=== PATIENT | female | born 1950 | race Caucasian/White ===

== ENCOUNTER 2021-01-24 08:36 | Emergency (ER) | payer OTHER, SELFPAY ==
--- NOTE | ~2021-01-24 | CT_ITS ---
EXAMINATION: CT HEAD WITHOUT CONTRAST CT CERVICAL SPINE WITHOUT CONTRAST CT MAXILLOFACIAL WITHOUT CONTRAST CLINICAL INFORMATION: Headache status post fall. Right orbital pain. COMPARISON: None. TECHNIQUE: Multidetector volumetric imaging of the head was performed without the administration of intravenous contrast. Images were also obtained with through the cervical spine as well as the facial bones from the frontal sinuses through the mandible. Multiplanar reconstructed images in coronal and sagittal orientations were submitted. This CT examination was performed using dose optimization techniques as appropriate, variously including the following: *Automated exposure control *Adjustment of mA and/or kV according to patient size (this includes techniques or standardized protocols for targeted exams where dose is matched to indication/reason for exam; i.e. extremities or head) *Use of iterative reconstruction technique DOSE: 1097 mGy-cm FINDINGS: HEAD: There is no evidence of acute intracranial hemorrhage or territorial infarction. No abnormal mass-effect or midline shift. No extra-axial fluid collections. Witt to white matter differentiation is well preserved. The ventricles are normal in size and configuration. There is no abnormal attenuation within the brain parenchyma. There is soft tissue swelling in the right periorbital region and right supraorbital frontal region. No underlying fractures are identified. Calvarium is intact. The mastoid air cells are clear. MAXILLOFACIAL: The mandible, maxilla, pterygoid plates, nasal bones, zygomatic arches, paranasal sinus patton, and bony orbits are intact. No acute osseous abnormality within the maxillofacial region. There is right periorbital soft tissue swelling, primarily along the supraorbital portion of the frontal bone. No post septal abnormalities. Intraconal and extraconal fat are normal. Destructive muscles and globes are unremarkable. Mucosal thickening is evident within the right maxillary sinus inferiorly. This may be odontogenic given the significant periodontal lucency surrounding the right second and third maxillary molars. Less pronounced periodontal disease is evident at the left maxillary molars. Apical periodontitis is also seen around the left second mandibular bicuspid. Artifact from the dental amalgam somewhat limits assessment of the teeth in these regions. Master arthritis is evident at the temporomandibular joints bilaterally. Mastoid air cells remain well-aerated. Oropharynx and nasopharynx are unremarkable. CERVICAL SPINE: Vertebral body heights are normal. No fractures of the vertebral bodies or posterior elements. Grade 1 anterolisthesis of C3 on C4 measures 3 mm, likely related to facet arthropathy at this level. Additional mild anterolisthesis of C2 on C3 measures 2 mm and is also likely related to facet arthropathy. There is reversal of the normal cervical lordosis, favored to be degenerative in nature. Vertebral alignment is otherwise normal. No acute subluxation. The craniocervical and atlantoaxial articulations are normal. Intervertebral discs are narrowed at multiple levels with associated endplate and uncovertebral osteophytes, most notably from C3-C4 through C7-T1. Severe facet arthropathy is seen at C2-C3 bilaterally and on the right at C3-C4. No significant central canal stenoses. There is multilevel neural foraminal encroachment, most notably at C3-C4 on the right due to uncovertebral and facet osteophytes. No significant paravertebral soft tissue swelling. Cervical soft tissues are unremarkable. Imaged portions of the lung apices are clear. CT/CT cervical spine wo con IMPRESSION: 1. No acute intracranial pathology. 2. Right periorbital soft tissue swelling without underlying fractures or post septal abnormalities 3. No acute fracture or acute malalignment in the cervical spine. Multilevel degenerative spondylosis. 4. 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 Mucosal thickening in the right maxillary sinus is most likely odontogenic. Focal apical periodontitis at the left second mandibular bicuspid.
[2021-01-24 09:03] VITALS: BP 145/82; PULSE 86; RESP 16; TEMP 36.9; O2SAT 100; BMI 18.3
--- NOTE | 2021-01-24 09:22 | ED.FALL ---
HPI - Fall General Chief Complaint: Fall Stated Complaint: head injury - fall Time Seen by Provider: 01/24/21 09:14 Source: patient Mode of arrival: ambulatory Limitations: no limitations History of Present Illness HPI Narrative: 70 y/o female presenting to the ER with right sided head pain and bruised eye after she sustained a mechanical fall in her kitchen last night. She reports drinking a few glasses of wine and having fun in her kitchen when she slipped and fell onto her face. She hit the right side of her forehead and had immediate pain. No loss of consciousness. Not on blood thinners or aspirin. She had no other injuries and was able to get up on her own. This morning she woke up with swelling of her forehead and bruising all around her right eye. She reports history of a fall several years ago resulting in terrible vertigo that did not allow her to work for several months. MD complaint: fall Onset (ago): day(s) (1) Fall from: standing Fall witnessed: yes, by family Place fall occurred: home Loss of consciousness: none Prolonged down time: no Symptoms prior to fall: none Context: tripped/slipped Location of injury: face Severity: moderate Quality: aching Associated symptoms (after fall): headache Related Data Allergies Allergy/AdvReac Type Severity Reaction Status Date / Time amoxicillin [From AUGMENTIN] Allergy Severe HIVES, Verified 01/24/21 09:02 ITCHING clavulanic acid Allergy Severe HIVES, Verified 01/24/21 09:02 [From AUGMENTIN] ITCHING erythromycin base Allergy Intermediate HEART Verified 01/24/21 09:02 [Erythromycin Base] PALPATATIONS diphenhydramine Allergy Unknown HIVES Verified 01/24/21 09:02 [From BENADRYL] garlic Allergy Unknown UNKNOWN Verified 01/24/21 09:02 onion [Onion] Allergy Unknown UNKNOWN Verified 01/24/21 09:02 Review of Systems Review of Systems: Constitutional: No Fever, No Chills ENT/Mouth: No sore throat, No Rhinorrhea, No Swallowing Difficulty Eyes: + Eye Pain, + Swelling, No Redness Cardiovascular: No Chest Pain, No SOB Gastrointestinal: No Nausea, No Vomiting, No Diarrhea, No abdominal Pain Genitourinary: No Hematuria Musculoskeletal: No joint pain, No Myalgias Skin: No Skin Lesions, No rash Neuro: No Weakness, No Numbness, No Dizziness, + Headache Psych: + Anxiety/Panic, No Depression Heme/Lymph:+ Bruising, No Lymphadenopathy PMFSH Social History Social History Advance Directives: No Physical Exam Vital Signs: Vital Signs: Last Vital Signs Temp 98.4 F 01/24/21 09:03 Pulse 86 01/24/21 09:03 Resp 16 01/24/21 09:03 BP 145/82 H 01/24/21 09:03 Pulse Ox 100 01/24/21 09:03 Body Mass Index 18.3 Appearance: Alert. Oriented X3. No acute distress. Head/face: moderate swelling of the right forehead with small amount of ecchymosis, right periorbital ecchymosis without significant swelling. tenderness of the right orbit and right frontal area. no palpable skull fracture Eyes: Pupils equal, round and reactive to light. EOMI, no nystagmus ENT: Pharynx normal. no dental trauma Neck: Normal inspection. Neck supple. no cervical spinal tenderness CVS: Normal heart rate and rhythm. Pulses normal. Respiratory: No respiratory distress. Speaks in complete sentences Skin: Skin warm and dry. Normal skin color. Normal skin turgor. No rashes. Extremities: No lower extremity edema. Atraumatic x4 Neuro: Oriented X 3. No motor deficit. No sensory deficit. Course Course Course Narrative: 70 y/o healthy female presenting with facial pain and bruising after a slip and fall last night, witnessed by family without LOC. Exam is consistent with a hematoma and periorbital ecchymosis. She is concerned about facial fractures. Will get CT scan for further evaluation. Reevaluation(s) Reevaluation #1: CT scans show no acute traumatic injuries. Results d/w patient and at the bedside. Stable for d/c home with supportive care and outpatient follow up. Discharge Plan Discharge Clinical Impression: Traumatic hematoma of forehead Qualifiers: Encounter type: initial encounter Qualified Code(s): S00.83XA - Contusion of other part of head, initial encounter Patient Disposition: Home, Self-Care Instructions: Facial Contusion (ED) Additional Instructions: Your CT scans did not show any fractures - only some soft tissue swelling around your right eye Recommend icing the area several times per day. Take Motrin and/or Tylenol as needed for discomfort. Recommend rest, both mental and physical rest CT scan also showed incidental finding of periodontal disease of the right sided molars - follow up with your dentist as needed Follow up with your Primary Care Doctor as needed If you develop new or worsening symptoms call 911 or come back to the ER for further evaluation. Stand Alone Forms: Work/School Release
[2021-01-24] MEDS: Acetaminophen 325 MG TABLET 975 MG PO (09:57)
== END 2021-01-24 11:03 | disposition home or self-care (01) ==
PROVIDERS: Emergency Provider Emergency Medicine; PCP Family Medicine
DX: S00.83XA Contusion of other part of head, initial encounter (principal); S00.11XA Contusion of right eyelid and periocular area, initial encounter; M54.2 Cervicalgia; G44.309 Post-traumatic headache, unspecified, not intractable; W01.0XXA Fall on same level from slipping, tripping and stumbling without subsequent striking against object, initial encounter; Y93.9 Activity, unspecified; Y92.9 Unspecified place or not applicable; Y99.9 Unspecified external cause status
CPT/HCPCS: 70450; 70486; 72125; 99283

== ENCOUNTER 2021-05-04 00:08 | Emergency (ER) | payer OTHER, SELFPAY ==
--- NOTE | 2021-05-04 00:25 | ED.ALLEREA ---
HPI - Allergic Reaction General Chief complaint: Allergic Reaction Stated complaint: HIVES S/P AMOXICILLIN Time Seen by Provider: 05/04/21 00:57 Source: patient and EMS Mode of arrival: EMS Limitations: no limitations History of Present Illness HPI narrative: 70-year-old female presents with rash and itching after taking amoxicillin. MD complaint: allergic reaction and hives Onset (ago): hour(s) (Within the hour of arrival) Exposure: medication Known history of allergy to: Amoxicillin Symptoms: itching Severity: mild Treatment prior to arrival: none Previous Allergic Reaction History: prior ED visit(s) Related Data Previous Rx's Medication Instructions Recorded prednisone 20 mg tablet 40 mg PO DAILY 4 Days #8 tab 05/04/21 Allergies Allergy/AdvReac Type Severity Reaction Status Date / Time amoxicillin [From AUGMENTIN] Allergy Severe HIVES, Verified 01/24/21 09:02 ITCHING clavulanic acid Allergy Severe HIVES, Verified 01/24/21 09:02 [From AUGMENTIN] ITCHING erythromycin base Allergy Intermediate HEART Verified 01/24/21 09:02 [Erythromycin Base] PALPATATIONS diphenhydramine Allergy Unknown HIVES Verified 01/24/21 09:02 [From BENADRYL] garlic Allergy Unknown UNKNOWN Verified 01/24/21 09:02 onion [Onion] Allergy Unknown UNKNOWN Verified 01/24/21 09:02 Review of Systems Review of Systems: Constitutional: No Fever, No Chills ENT/Mouth: No Ear Pain, No Hoarseness, No sore throat Eyes: No Eye Pain, No Swelling, No Redness, No Foreign Body Cardiovascular: No Chest Pain, No SOB Respiratory: No Cough, No Dyspnea Gastrointestinal: No Nausea, No Vomiting, No Diarrhea, No abdominal Pain Genitourinary: No Dysuria, No Hematuria Musculoskeletal: No joint pain, No Myalgias, No Joint Swelling Skin: Positive itching, No Skin lacerations, positive pink flushing rash Neuro: No Weakness, No Numbness, No Paresthesias, No Loss of Consciousness, No Dizziness, No Headache Psych: No Anxiety/Panic, No Depression Heme/Lymph: no easy bruising, no Lymphadenopathy Endocrine: No Polyuria, No Polydipsia Yes all other systems are reviewed and are negative PMFSH Past Medical History Attestation statement: The following information was validated with the patient. Source: old records reviewed Social History Social History Advance Directives: Yes Advance Directives Information Provided: No Advance Directives on File: No Physical Exam Vital Signs: Vital Signs: Last Vital Signs Temp 98.1 F 05/04/21 00:39 Pulse 78 05/04/21 00:39 Resp 18 05/04/21 00:39 BP 131/74 05/04/21 00:39 Pulse Ox 99 05/04/21 00:39 BMI result Body Mass Index 18.3 Appearance: Alert. Oriented X3. No acute distress. Appears anxious. Head: Normal external exam. Normocephalic. Atraumatic. No Mason signs noted. No raccoon eyes noted Eyes: PERRLA. EOMI. Conjunctiva and sclera normal. Eyelids normal. ENT: TM's Normal. Pharynx normal. Uvula midline. Moist mucous membranes. No trismus noted. No drooling noted. No muffled voice noted. Neck: Normal inspection. Neck supple. No adenopathy. CVS: Normal heart rate and rhythm. Heart sound normal. No murmurs noted. Pulses equal to all extremities. Respiratory: No respiratory distress. Painless inspiration. Breath sounds normal. No wheezes/rales/rhonchi noted. Chest nontender. No tracheal stridor noted. No accessory muscle usage noted or decreased air movement noted. Abdomen: Soft and nontender. Bowel sounds normal in all 4 quadrants. No distention noted. No organomegaly noted. No visible injury noted. Back: No CVA tenderness. Full range of motion noted. Skin: Skin warm and dry. Normal skin color. Normal skin turgor. No rashes/lesions/lacerations noted. Extremities: No lower extremity edema. Extremities exhibit normal range of motion. Extremities nontender. Neuro: cranial nerves 2-12 intact, no focal neural deficits, strength 5/5 to all extremities, No motor deficit. No sensory deficit. Course Course Course Narrative: 70-year-old female presents via EMS for suspected allergic reaction to amoxicillin given to her by her dentist for suspected dental infection. Stated that she felt full body itching and had a pink flushing rash throughout her body. She is speaking in clear sentences, no respiratory distress, able to ambulate from stretcher to ED bed without difficulty. Vital signs are stable and within normal limits. At the time my examination, I do not appreciate any raised rashes, tracheal stridor, lung sounds are clear to auscultation all lobes. Even unlabored respirations, moves all extremities against resistance. Abdominal exam is negative, no tenderness to palpation. No chest wall tenderness to palpation. Will treat with prednisone at this time. Is quite hesitant about taking additional medications. Will monitor for approximately 30 minutes status post prednisone administration. 1:16 a.m. lung sounds clear to auscultation all lobes, no tracheal stridor, even unlabored respirations. Vital signs were stable and within normal limits. Able to speak in complete sentences. No indication of medication adverse reaction from prednisone. Skin normal, no indication of hives or flushing rash. Plan of care to discharge home with prescription for prednisone for the next 4 days. Patient verbalized understanding of and agrees to plan of care discharge home. MDM - Allergic Reaction Differential Diagnosis Differential diagnosis: Likely allergic reaction and adverse reaction to drug Medical Records Attestation: I reviewed the patient's medical records. Discharge Plan Discharge Clinical Impression: Allergic reaction Qualifiers: Encounter type: initial encounter Qualified Code(s): T78.40XA - Allergy, unspecified, initial encounter Patient Disposition: Home, Self-Care Instructions: General Allergic Reaction (ED), Allergy Testing (ED) Additional Instructions: You were evaluated for a mild reaction from an antibiotic that was prescribed to you by your dentist. We prescribed you prednisone 40 mg for the next 4 days. Please take this medication as directed. We gave you the 1st dose of prednisone in the emergency department. Please follow-up with your dentist regarding medication reaction. Please discontinue the medication that was prescribed to you for dental infection Thank you for choosing this emergency department for evaluation. Please follow-up with primary care physician as needed. Return to the emergency department for any new, concerning, or worsening symptoms. Prescriptions: New prednisone 20 mg tablet 40 mg PO DAILY 4 Days Qty: 8 RF: 0
[2021-05-04 00:39] VITALS: BP 131/74; PULSE 78; RESP 18; TEMP 36.7; O2SAT 99; BMI 18.3
[2021-05-04] MEDS: predniSONE 20 MG TABLET 40 MG PO (00:54)
[2021-05-04 01:19] VITALS: BP 116/70; PULSE 75; RESP 16; O2SAT 98
== END 2021-05-04 01:32 | disposition home or self-care (01) ==
PROVIDERS: Emergency Provider Emergency Medicine; PCP Family Medicine
DX: L27.0 Generalized skin eruption due to drugs and medicaments taken internally (principal); T36.0X5A Adverse effect of penicillins, initial encounter
CPT/HCPCS: 99283

== ENCOUNTER 2021-09-19 07:04 | Emergency (ER) | payer OTHER, SELFPAY ==
--- NOTE | ~2021-09-19 | XR_ITS ---
EXAMINATION: XR CHEST CLINICAL INFORMATION: Cough COMPARISON: X-ray 04/04/2018 TECHNIQUE: 2 views of the chest were obtained. FINDINGS: The lungs are well-expanded. There is no focal consolidation, edema or effusion. No pneumothorax. The cardiomediastinal silhouette is within normal limits. No acute osseous abnormality. XR/XR chest 2V IMPRESSION: No significant interval change. No acute pulmonary disease.
[2021-09-19 07:08] VITALS: BP 155/83; PULSE 95; RESP 18; TEMP 37.6; O2SAT 100; BMI 18.3
[2021-09-19 07:36] LABS: IDNOW Serial# 08D9AD1C; Strep A Nucleic Acid Negative (Negative)
[2021-09-19 07:41] LABS: COVID-19 Test Negative (Negative); IDNOW Serial# 16C4AD1C; Influenza A Negative (Negative); Influenza B2 Negative (Negative)
--- NOTE | 2021-09-19 07:44 | ED.URI ---
HPI - URI/Sore Throat General Chief Complaint: Upper Respiratory Symptoms Stated Complaint: Cough/Sore throat/Ear ache Time Seen by Provider: 09/19/21 07:33 Source: patient Mode of arrival: ambulatory Limitations: no limitations History of Present Illness HPI Narrative: 70 yo female with no medial l problems presented with c/o cough congestion redness eyes with purulent drainage,seen at the Urgent care 2 Days ago diagnosed with viral Illness MD elicited complaint: cough, sore throat, rhinorrhea and nasal congestion Onset (ago): day(s) (4) Consistency: constant Severity: moderate Description of mucous: clear Able to tolerate fluids by mouth: Yes Exacerbating factors: nothing Associated symptoms: nasal congestion, sore throat and cough Treatments prior to arrival: none Related Data Previous Rx's Medication Instructions Recorded prednisone 20 mg tablet 40 mg PO DAILY 4 Days #8 tab 05/04/21 ciprofloxacin HCl 0.3 % eye drops See Rx Instructions .ROUTE 09/19/21 .COMPLEX #2.5 ml doxycycline monohydrate 100 mg 100 mg PO BID #14 cap 09/19/21 capsule Allergies Allergy/AdvReac Type Severity Reaction Status Date / Time amoxicillin [From AUGMENTIN] Allergy Severe HIVES, Verified 09/19/21 07:08 ITCHING clavulanic acid Allergy Severe HIVES, Verified 09/19/21 07:08 [From AUGMENTIN] ITCHING erythromycin base Allergy Intermediate HEART Verified 09/19/21 07:08 [Erythromycin Base] PALPATATIONS diphenhydramine Allergy Unknown HIVES Verified 09/19/21 07:08 [From BENADRYL] garlic Allergy Unknown UNKNOWN Verified 09/19/21 07:08 onion [Onion] Allergy Unknown UNKNOWN Verified 09/19/21 07:08 Review of Systems Review of Systems: Yes all other systems are reviewed and are negative Eyes: Eyes: Reports eye discharge ENT: Reports otalgia and Reports hoarseness Cardiovascular: Cardiovascular: Reports no additional cardiovascular complaints Respiratory: Respiratory: Reports cough Gastrointestinal: Gastrointestinal: Denies nausea and Denies vomiting Neurologic: Reports system reviewed and no additional complaints, except as documented [facility] Past Medical History [facility] Narrative: Denies Social History Social History Advance Directives: No Advance Directives Information Provided: No Physical Exam Vital Signs: Vital Signs: Last Vital Signs Temp 99.6 F 09/19/21 07:08 Pulse 95 09/19/21 07:08 Resp 18 09/19/21 07:08 BP 155/83 H 09/19/21 07:08 Pulse Ox 100 09/19/21 07:08 BMI result Body Mass Index 18.3 Const: General: cooperative, no acute distress, well developed, alert and awake Nutritional Appearance: average body habitus Orientation/consciousness: patient oriented x3 Limitations: no limitations HEENT: Head: Yes normal to inspection Ears: other (TM with waxes) General nose exam: Normal nares present Face and sinus: Yes normal facial exam Mouth: other (erythema pharynx) Eyes: Conjunctivae: other (injected conjuntiva rt more than left) EOM: EOMs intact bilaterally Neck: Neck: Yes normal visual inspection, Yes full ROM and Yes no lymphadenopathy Chest: Chest palpation & inspection: normal inspection of the chest Resp: Effort & Inspection: normal respiratory effort, able to speak in complete sentences, no audible wheezes and Actively coughing Quality: dry Auscultation: rhonchi Cardio: Jugular venous distension: no JVD Rate: regular rate Rhythm: regular rhythm GI: Inspection: Yes normal to inspection Palpation (GI): Soft to palpation, not firm, nontender and no guarding : General: Yes no CVA tenderness Back/Spine/Pelvis: Back: no CVA tenderness Skin: General skin exam: no rashes or lesions noted Neuro: General: patient oriented x3 MDM - URI/Sore Throat MDM Narrative Medical decision making narrative: 70 years old presented with a URI symptoms/pharyngitis/conjunctivitis. We are l going to get a rapid strep, influenza ,COVID, we will get a chest x-ray, overall she looks well she is not toxic-appearing; I do not think we need any blood work. Lab Data Attestation: I reviewed the patient's lab results. Labs: Lab Results 09/19/21 09/19/21 09/19/21 Range/Units 07:19 07:19 07:19 COVID-19 (STEVIE) Negative (Negative) COVID-19 Clin Com See Note Influenza Type A (INDRA) Negative (Negative) Influenza Type B (INDRA) Negative (Negative) Influenza A & B Note See Note S. pyogenes GrpA INDRA Negative (Negative) Imaging Data Chest x-ray: Radiologist's impression: XR CHEST CLINICAL INFORMATION: Cough COMPARISON: X-ray 04/04/2018 TECHNIQUE: 2 views of the chest were obtained. FINDINGS: The lungs are well-expanded. There is no focal consolidation, edema or effusion. No pneumothorax. The cardiomediastinal silhouette is within normal limits. No acute osseous abnormality. XR/XR chest 2V IMPRESSION: No significant interval change. No acute pulmonary disease. ? ? Dictated By: Jefry Acosta MD Signed By: <Electronically signed by Jefry Acosta MD in [place]> 09/19/21 0814 Discharge Plan Discharge Clinical Impression: Conjunctivitis, Bronchitis Patient Disposition: Home, Self-Care Instructions: Acute Bronchitis (ED), Conjunctivitis (ED) Additional Instructions: Follow-up with your primary care physician return to the emergency room if you worse fever vomiting any concern Prescriptions: New doxycycline monohydrate 100 mg capsule 100 mg PO BID Qty: 14 0RF ciprofloxacin HCl 0.3 % drops See Rx Instructions .ROUTE .COMPLEX Qty: 2.5 0RF Rx Instructions: put 1-2 drps in affected eye(s) every 2hr up to 8 times/day x2days; then 4 times/day x5days No Action prednisone 20 mg tablet 40 mg PO DAILY 4 Days Qty: 8 0RF Referrals: Salinas Broussard MD [Primary Care Provider] - 2 days Stand Alone Forms: Work/School Release
[2021-09-19 08:48] LABS: Influenza A PCR NEGATIVE (Negative); Influenza B PCR NEGATIVE (Negative); Resp Syncy Virus RNA Qual PCR NEGATIVE (Negative); SARS COV2 PCR INHOUSE NEGATIVE (Negative)
== END 2021-09-19 08:52 | disposition home or self-care (01) ==
PROVIDERS: Emergency Provider Emergency Medicine; PCP Family Medicine
DX: H10.33 Unspecified acute conjunctivitis, bilateral (principal); J40 Bronchitis, not specified as acute or chronic; R05.9 Cough, unspecified; R09.81 Nasal congestion; Z20.822 Contact with and (suspected) exposure to COVID-19; Z79.899 Other long term (current) drug therapy
CPT/HCPCS: 0241U; 36415; 71046; 87502; 87635; 87651; 99283

== ENCOUNTER 2021-10-31 11:03 | Emergency (ER) | payer OTHER, SELFPAY ==
[2021-10-31 11:13] VITALS: BP 124/73; PULSE 70; RESP 18; TEMP 36.7; O2SAT 100; BMI 18.1
--- NOTE | 2021-10-31 12:18 | ED_ITS ---
HPI - Eye Problem General Chief complaint: Eye Problems Stated complaint: pink eye Time Seen by Provider: 10/31/21 12:08 Source: patient Mode of arrival: ambulatory History of Present Illness HPI Narrative: 70-year-old female with no significant past medical history presenting to the ED complaining of left eye erythema, crusting and drainage x4 days. Admits to similar symptoms in the past with conjunctivitis. Denies wearing glasses or contacts. Denies foreign body sensation, vision change, vision loss chief complaint: eye pain and eye redness Onset (ago): day(s) Related Data Previous Rx's Medication Instructions Recorded prednisone 20 mg tablet 40 mg PO DAILY 4 days #8 tabs 05/04/21 ciprofloxacin HCl 0.3 % eye drops See Rx Instructions ophthalmic 09/19/21 (eye) .COMPLEX conjuntivitis #2.5 mL doxycycline monohydrate 100 mg 100 mg PO BID #14 caps 09/19/21 capsule ofloxacin 0.3 % eye drops 2 drp ophthalmic (eye) QID 7 days 10/31/21 #10 mL Allergies Allergy/AdvReac Type Severity Reaction Status Date / Time amoxicillin [From AUGMENTIN] Allergy Severe HIVES, Verified 10/31/21 11:13 ITCHING clavulanic acid Allergy Severe HIVES, Verified 10/31/21 11:13 [From AUGMENTIN] ITCHING erythromycin base Allergy Intermediate HEART Verified 10/31/21 11:13 [Erythromycin Base] PALPATATIONS diphenhydramine Allergy Unknown HIVES Verified 10/31/21 11:13 [From BENADRYL] garlic Allergy Unknown UNKNOWN Verified 10/31/21 11:13 onion [Onion] Allergy Unknown UNKNOWN Verified 10/31/21 11:13 Review of Systems Review of Systems: Constitutional: No Fever, No Chills, No Night Sweats, No Fatigue, No Malaise ENT/Mouth: No Ear Pain, No Nasal Congestion, No Sinus Pain, No Hoarseness, No sore throat, No Rhinorrhea, No Swallowing Difficulty Eyes: No Eye Pain, No Swelling, + Redness, No Foreign Body, + Discharge, No Vision Changes Cardiovascular: No Chest Pain, No SOB Respiratory: No Cough, No Sputum, No Dyspnea Gastrointestinal: No Nausea, No Vomiting, No Diarrhea, No Constipation, No Abdominal pain Musculoskeletal: No joint pain, No Myalgias, No Joint Swelling Skin: No Skin Lesions, No rash Neuro: No Weakness, No Dizziness, No Headache Yes all other systems are reviewed and are negative [facility] [place] Past Medical History Attestation statement: The following information was validated with the patient. Social History Social History Advance Directives: No Advance Directives Information Provided: No Physical Exam Vital Signs: Vital Signs: Last Vital Signs Temp 98.0 F 10/31/21 11:13 Pulse 70 10/31/21 11:13 Resp 18 10/31/21 11:13 BP 124/73 10/31/21 11:13 Pulse Ox 100 10/31/21 11:13 O2 Del Method 10/31/21 11:13 BMI result Body Mass Index 18.1 Const: General: cooperative, healthy appearing and no acute distress Orie ntation/consciousness: patient oriented x3 Limitations: no limitations HEENT: Head: Yes normal to inspection and Yes atraumatic Ears: hearing grossly normal bilaterally General nose exam: Normal external nose present Face and sinus: Yes normal facial exam Eyes: Other: Eye lid crusting noted General: appearance normal, both eyes and all related structures Periorbital: periorbital findings normal Eyelids: Yes eyelids normal Conjunctivae: conjunctival abnormal left conjunctival injection and discharge purulent Sclerae: sclerae normal Corneas: corneas normal Pupils: Equal, round and reactive pupils present EOM: EOMs intact bilaterally Direct Ophthalmoscopy: normal light reflex and no photophobia Neck: Neck: Yes normal visual inspection and Yes no meningeal signs Resp: Effort & Inspection: normal respiratory effort and no respiratory distress Cardio: Rate: regular rate Heart sounds: S1 normal heart sound present and S2 normal heart sound present Skin: Rashes: no rashes Wounds: no wounds Neuro: General: patient oriented x3, tone normal and no meningeal signs Cranial nerves: Yes Equal, round and reactive pupils present Gait exam (Neuro): Normal gait present Extrem: General: Yes normal to inspection MDM - Eye Problem MDM Narrative Medical decision making narrative: 70-year-old female with no significant past medical history presenting to the ED complaining of left eye erythema, crusting and drainage x4 days. On exam vital signs stable, NAD, physical exam as above consistent with left eye conjunctivitis. Low concern for foreign body, ulceration or corneal abrasion. No evidence of periorbital or orbital cellulitis Differential Diagnosis Differential diagnosis: Likely corneal abrasion Medical Records Attestation: I reviewed the patient's medical records. Lab Data Attestation: I reviewed the patient's lab results. Discharge Plan Discharge Clinical Impression: Bacterial conjunctivitis Patient Disposition: Home, Self-Care Instructions: Conjunctivitis (ED) Additional Instructions: You have bacterial conjunctivitis. Floxacillin eyedrops will treat this infection. Wash eye with warm washcloth, avoid touching other eye as infection can spread. 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
== END 2021-10-31 12:37 | disposition home or self-care (01) ==
PROVIDERS: Emergency Provider Emergency Medicine Emergency Medical Services; PCP Family Medicine
DX: H10.022 Other mucopurulent conjunctivitis, left eye (principal); Z79.899 Other long term (current) drug therapy
CPT/HCPCS: 99282

== ENCOUNTER 2022-02-24 07:24 | Emergency (ER) | payer OTHER, SELFPAY ==
[2022-02-24 07:37] VITALS: BP 157/68; PULSE 70; RESP 18; TEMP 36.6; O2SAT 100; BMI 17.6
--- NOTE | 2022-02-24 07:54 | ED_ITS ---
HPI - General Adult General Chief complaint: General Medical Stated complaint: Allergic reaction Time Seen by Provider: 02/24/22 07:34 Source: patient and family Mode of arrival: ambulatory History of Present Illness HPI narrative: 71-year-old female without significant past medical history presents with having consumed her regular wine last night with dinner and then this morning at 06:30 woke up and states that her anterior chest was flushed and did extend into her neck and her face with bilateral eye swelling. Patient allergic to Benadryl so has not taken anything, she denies any new creams, changes in any prescription medications (she denies any prescription medications), denies any new foods and understands as sometimes alcohol can cause facial flushing. She denies any unexplained weight loss, nausea, vomiting, or diarrhea. She has recently had a physical exam in June of this year. Related Data Previous Rx's Medication Instructions Recorded prednisone 20 mg tablet 40 mg PO DAILY 4 days #8 tabs 05/04/21 ciprofloxacin HCl 0.3 % eye drops See Rx Instructions ophthalmic 09/19/21 (eye) .COMPLEX conjuntivitis #2.5 mL doxycycline monohydrate 100 mg 100 mg PO BID #14 caps 09/19/21 capsule ofloxacin 0.3 % eye drops 2 drp ophthalmic (eye) QID 7 days 10/31/21 #10 mL Allergies Allergy/AdvReac Type Severity Reaction Status Date / Time amoxicillin [From AUGMENTIN] Allergy Severe HIVES, Verified 10/31/21 11:13 ITCHING clavulanic acid Allergy Severe HIVES, Verified 10/31/21 11:13 [From AUGMENTIN] ITCHING erythromycin base Allergy Intermediate HEART Verified 10/31/21 11:13 [Erythromycin Base] PALPATATIONS diphenhydramine Allergy Unknown HIVES Verified 10/31/21 11:13 [From BENADRYL] garlic Allergy Unknown UNKNOWN Verified 10/31/21 11:13 onion [Onion] Allergy Unknown UNKNOWN Verified 10/31/21 11:13 Review of Systems Review of Systems: Pertinent positives and negatives as stated in HPI 10 point review of systems is otherwise negative. PMFSH Past Medical History Source: nursing notes reviewed Social History Social History Advance Directives: No Advance Directives Information Provided: Yes Physical Exam ED Vital Signs: Vital Signs - 24 hr 02/24/22 07:37 Temperature 98 F Pulse Rate 70 Respiratory Rate 18 Blood Pressure 157/68 H Pulse Oximetry 100 Oxygen Delivery Method Room Air BMI result Body Mass Index 17.6 VITAL SIGNS: Reviewed. GENERAL: Well developed, well nourished, in no acute distress. HEAD: Normocephalic/atraumatic; FACE: There is noted erythema over the entire face, not just malar, there is noted residual edema to bilateral lower lids EYES: PERRLA, EOMI, no nystagmus EARS: Ext canals without abnormality NOSE: Nares patent bilateral OROPHARYNX: no oral lesions noted, posterior pharynx clear and non-erythematous without noted tonsillar enlargement/erythema/exudates, there is no facial/lip/tongue swelling NECK: Supple, no adenopathy LUNGS: Normal breath sounds. No adventitious sounds or accessory muscle use. SpO2<100> CARDIOVASCULAR: Regular rate and rhythm without noted murmurs ABDOMEN: Soft, non-tender, non-distended with bowel sounds. MUSCULOSKELETAL: No tenderness, deformities, or effusions noted on gross inspection. EXTREMITIES: No cyanosis, clubbing or edema. SKIN: Inspection of the skin reveals no rashes NEUROLOGIC: Alert and oriented x 4. Strength and sensation to light touch were grossly intact x 4. Course Course Course Narrative: 71-year-old female with history and clinical presentation suggestive of possible facial flushing secondary to alcohol consumption and given the nature of the flushing to the face less likely felt to be allergic in etiology. There is a possibility of thyroid/carcinoid/serotonin/SLE etiologies that would better be worked up in an outpatient setting. Patient was provided with steroids and will obtain basic labs to include TSH/MITCHELL/ESR/CRP. Review of all investigations negative for acute findings although MITCHELL is pending. All results were discussed with patient at bedside on re-evaluation the facial changes have improved after receiving the prednisone. I discussed with the patient that I will not be sending her out on steroids and that she kelin uld contact her primary care provider today to set up an appointment for re- evaluation and follow-up on the MITCHELL results and pursuing any additional outpatient investigations to better explain her presentation. Influenza and COVID-19 are negative. Medical Decision Making Lab Data Result diagrams: 02/24/22 08:02 02/24/22 08:02 Labs: Lab Results 02/24/22 02/24/22 02/24/22 Range/Units 08:02 08:02 08:02 WBC 3.6 L (4.8-10.8) X10*3/uL RBC 3.79 L (4.20-5.50) X10*6/uL Hgb 11.9 L (12.0-16.0) g/dl Hct 36.1 L (37.0-47.0) % MCV 95.3 (80.0-98.0) fL MCH 31.4 (27.0-33.0) pg MCHC 33.0 (31.0-35.0) g/dl RDW 13.2 (11.0-16.0) % Plt Count 169 (160-400) X10*3/uL MPV 11.1 (9.4-12.3) fL Immature Gran % (Auto) 0.0 (0.0-0.4) % Neut % (Auto) 43.9 L (45-73) % Lymph % (Auto) 39.0 (20-40) % Crosby % (Auto) 13.4 H (2-11) % Eos % (Auto) 3.1 (0-4) % Baso % (Auto) 0.6 (0-2) % Lymph # (Auto) 1.4 (1.2-4.9) X10*3/uL Crosby # (Auto) 0.5 (0.1-1.2) X10*3/uL Eos # (Auto) 0.1 (0.0-0.4) X10*3/uL Baso # (Auto) 0.0 (0.0-0.2) X10*3/uL Abs Immat Gran (auto) 0.00 (0.00-0.03) X10*3/uL Absolute Neuts (auto) 1.6 L (2.0-8.3) x10*3/uL Absolute Nucleated RBC 0.000 (0.0-0.012) X10*3/uL Nucleated RBC % (auto) 0.0 (0.0-0.2) /100WBC ESR 6 (0-20) MM/HR Sodium 141 (135-145) mmol/L Potassium 4.2 (3.3-5.1) mmol/L Chloride 105 (96-108) mmol/L Carbon Dioxide 25 (22-29) mmol/L Anion Gap 15 (12-20) BUN 16 (9-16) mg/dL Creatinine 0.69 (0.5-1.4) mg/dL Estim Creat Clear Calc 51.9 Estimated GFR > 60 Random Glucose 95 (60-115) mg/dL Calcium 9.4 (8.4-10.2) mg/dL Total Bilirubin 0.7 (0.0-1.0) mg/dL AST 27 (5-31) U/L ALT 18 (0-31) U/L Alkaline Phosphatase 88 (39-117) U/L C-Reactive Protein 0.28 (< or = 0.50) mg/dL Total Protein 6.5 (6.5-8.0) g/dL Albumin 4.1 (3.5-5.0) g/dL TSH 2.73 (0.32-4.0) uIU/mL Ethyl Alcohol < 10 mg/dL COVID-19 (STEVIE) (Negative) COVID-19 Clin Com Influenza Type A (INDRA) (Negative) Influenza Type B (INDRA) (Negative) Influenza A & B Note 02/24/22 02/24/22 Range/Units 09:41 09:41 WBC (4.8-10.8) X10*3/uL RBC (4.20-5.50) X10*6/uL Hgb (12.0-16.0) g/dl Hct (37.0-47.0) % MCV (80.0-98.0) fL MCH (27.0-33.0) pg MCHC (31.0-35.0) g/dl RDW (11.0-16.0) % Plt Count (160-400) X10*3/uL MPV (9.4-12.3) fL Immature Gran % (Auto) (0.0-0.4) % Neut % (Auto) (45-73) % Lymph % (Auto) (20-40) % Crosby % (Auto) (2-11) % Eos % (Auto) (0-4) % Baso % (Auto) (0-2) % Lymph # (Auto) (1.2-4.9) X10*3/uL Crosby # (Auto) (0.1-1.2) X10*3/uL Eos # (Auto) (0.0-0.4) X10*3/uL Baso # (Auto) (0.0-0.2) X10*3/uL Abs Immat Gran (auto) (0.00-0.03) X10*3/uL Absolute Neuts (auto) (2.0-8.3) x10*3/uL Absolute Nucleated RBC (0.0-0.012) X10*3/uL Nucleated RBC % (auto) (0.0-0.2) /100WBC ESR (0-20) MM/HR Sodium (135-145) mmol/L Potassium (3.3-5.1) mmol/L Chloride (96-108) mmol/L Carbon Dioxide (22-29) mmol/L Anion Gap (12-20) BUN (9-16) mg/dL Creatinine (0.5-1.4) mg/dL Estim Creat Clear Calc Estimated GFR Random Glucose (60-115) mg/dL Calcium (8.4-10.2) mg/dL Total Bilirubin (0.0-1.0) mg/dL AST (5-31) U/L ALT (0-31) U/L Alkaline Phosphatase (39-117) U/L C-Reactive Protein (< or = 0.50) mg/dL Total Protein (6.5-8.0) g/dL Albumin (3.5-5.0) g/dL TSH (0.32-4.0) uIU/mL Ethyl Alcohol mg/dL COVID-19 (STEVIE) Negative (Negative) COVID-19 Clin Com See Note Influenza Type A (INDRA) Negative (Negative) Influenza Type B (INDRA) Negative (Negative) Influenza A & B Note See Note Discharge Plan Discharge Clinical Impression: Facial flushing, Facial rash Patient Disposition: Home, Self-Care Instructions: Acute Rash (ED) Additional Instructions: 1. Follow-up with your primary care provider at your earliest convenience for re-evaluation and further outpatient management and investigation. Also, need to follow-up on the MITCHELL results as those are still pending. Return to the ER for worsening symptoms. Prescriptions: No Action ofloxacin 0.3 % drops 2 drp ophthalmic (eye) QID 7 Days Qty: 10 0RF prednisone 20 mg tablet 40 mg PO DAILY 4 Days Qty: 8 0RF doxycycline monohydrate 100 mg capsule 100 mg PO BID Qty: 14 0RF ciprofloxacin HCl 0.3 % drops See Rx Instructions .ROUTE .COMPLEX Qty: 2.5 0RF Rx Instructions: put 1-2 drps in affected eye(s) every 2hr up to 8 times/day x2days; then 4 times/day x5days Referrals: Salinas Broussard MD [Primary Care Provider] - (Inexplicable facial rash, inflammatory markers negative although MITCHELL is still pending. Also possible flushing after alcohol consumption.)
[2022-02-24] MEDS: predniSONE 10 MG TABLET 50 MG PO (08:06)
[2022-02-24 08:10] LABS: MANUAL DIFF FLAG NO
--- OUTSIDE RECORDS SUMMARY | 2022-02-24 08:11 | XMS_ITS | Continuity of Care Document ---
:1950 Author Organization [facility] Adult Address [address] [place] [address]- Care Team Providers Name Role Phone Bobo THOMAS, Salinsa Jaffe Primary Care Physician Encounter [facility] [place] Date(s): 10/06/21 - 11/06/21 [facility] Adult [address] [place] [address]- Attending Physician: Vero Noel NP Allergies, Adverse Reactions, Alerts Substance Reaction Severity Status erythromycin Palpation Active amoxicillin-clavulanate Active garlic SEVERE DIARRHEA Active Seasonale Active Immunizations Given and Recorded Vaccine Date Status Refusal Reason SARS-CoV-2 mRNA ([id number]) vax 08/13/21 Recorde d pneumococcal 23-valent vaccine 05/28/21 Recorded SARS-CoV-2 (COVID-19) mRNA BNT-162b2 vac 02/23/21 Recorde d SARS-CoV-2 (COVID-19) mRNA BNT-162b2 vac 08/19/20 Given SARS-CoV-2 (COVID-19) mRNA BNT-162b2 vac 07/29/20 Given influenza virus vaccine, inactivated 01/27/21 Recorded influenza virus vaccine, inactivated 01/24/20 Recorded influenza virus vaccine, inactivated 02/01/19 Recorded influenza virus vaccine, inactivated 02/09/18 Recorded influenza virus vaccine, inactivated 03/20/17 Recorded influenza virus vaccine, inactivated1 02/12/17 Recorded influenza virus vaccine, inactivated 01/12/16 Recorded influenza virus vaccine, inactivated 01/11/16 Recorded pneumococcal 13-valent vaccine2 08/27/18 Given pneumococcal 13-valent vaccine 06/29/16 Given tetanus/diphtheria/pertussis, acel(Tdap) 06/29/16 Given 1Location History: [id number] Comment: [id number] Medications ciprofloxacin 0.3% ophthalmic solution 0 Refills, Maintenance, 09/21/21 12:54:00 EDT, Partial fill upon patient request if the prescriptionis for a schedule II opioid drug. Start Date: 09/21/21 Status: Orderedhydrocortisone topical 25 mg suppository 1 supp = 25 mg, Rectally, 2 times a day, # 28 supp, 1 Refills, Maintenance, 07/30/21 8:57:00 EDT, Suppository, [facility]/pharmacy #[id number], Partial fill upon patient request if the prescription is for a schedule II opioid drug., 157.5, cm, 07/29/21 16:09:00 ED... Start Date: 07/30/21 Stop Date: 08/27/21 Status: OrderedPlenvu oral powder for reconstitution See Instructions, split dose 1/2 dose day before 1/2 dose day of procedure (6hrs before procedure), # 1,000 mL, 0 Refills, Maintenance, 10/21/21 16:18:00 EDT, [facility]/pharmacy #[id number], Partial fill upon patient request if the prescription is for a schedu... Start Date: 10/21/21 Status: Ordered Problem List Condition Effective Dates Status Health Status Informant Acute bronchitis(Confirmed) Active Acute conjunctivitis(Confirmed) Active Allergic rhinitis(Confirmed) Active Edema(Confirmed) Active Headache(Confirmed)1 Active Left inguinal pain(Confirmed) Active Vestibular migraine(Confirmed) Active Pharyngitis(Confirmed) Active Underweight(Confirmed) Active Vertigo(Confirmed)2, 3 Active Vitamin D deficiency(Confirmed) Active 1Tried pt for, seen in ED for 04/[address] Cervical ROM found to elicit LOGAN during PT.She was referred to [id number] Dr uMñiz. In [place] tried PT for 04/15/16 Social History Social History Type Response Smoking Status Former smoker; Tobacco use t imes per day: Smoke less the a pack a day; Started at age: 17; Stopped at age: 30; entered on: 06/29/16 Sex
--- OUTSIDE RECORDS SUMMARY | 2022-02-24 08:11 | XMS_ITS | Continuity of Care Document ---
:1950 Author Organization [facility] Adult Address [address] [place] [address]- Care Team Providers Name Role Phone Salinas Broussard MD Primary Care Physician Encounter [facility] [place] Date(s): 06/04/19 - 10/02/19 [facility] [address] [place] [address]- [facility] Attending Physician: Salinas Broussard MD Allergies, Adverse Reactions, Alerts Substance Reaction Severity Status erythromycin Palpation Active amoxicillin-clavulanate Active garlic SEVERE DIARRHEA Active Seasonale Active Immunizations Given and Recorded Vaccine Date Status Refusal Reason pneumococcal 13-valent vaccine1 08/27/18 Given pneumococcal 13-valent vaccine 06/29/16 Given influenza virus vaccine, inactivated2 02/12/17 Recorded influenza virus vaccine, inactivated 01/12/16 Recorded tetanus/diphtheria/pertussis, acel(Tdap) 06/29/16 Given 1Result Comment: [id number] History: [facility] Medications Flax Seed Oil 0 Refills, Maintenance, 07/18/17 15:01:23 Start Date: 07/18/17 Status: OrderedFlonase 50 mcg/inh nasal spray 1 sprays, Nares, Both, 2 times a day, # 16 Gm, 3 Refills, Maintenance, 09/27/19 7:39:00 EDT, [place], [id number], 1 sprays Nares, Both 2 times a day, 157.5, cm, 09/02/19 14:02:00 EDT, Height Start Date: 09/27/19 Status: Orderedfurosemide 20 mg oral tablet 20 mg, 1, tablet, By Mouth, Every 48 hours, # 15 tablet, Refills 5, Tot. Refills 5, Soft Stop, 04/24/19 16:36:06 EST, Route to Pharmacy Electronically, [id number], [facility]/pharmacy #[id number], 157.5, cm, 08/27/18 12:53:43 EDT, Height Start Date: 04/24/19 Status: OrderedMultivitamin Daily, 0 Refills, Maintenance, 07/18/17 15:01:18 Start Date: 07/18/17 Status: OrderedPremarin 0.625 mg oral tablet 1 tablet = 0.625 mg, By Mouth, Daily, # 30 tablet, 0 Refills, Maintenance, 06/08/16 8:29:41, Tablet Start Date: 06/08/16 Status: OrderedProAir HFA 90 mcg/inh inhalation aerosol with adapter 2, puffs, Inhalation, Every 6 hours, PRN, # 8.5 Gm, Refills 0, Tot. Refills 0, Maintenance, 08/28/2015:41:00 EDT, Aerosol, Route to Pharmacy Electronically, [id number], [facility]/pharmacy #[id number], 157.5, cm, 08/27/18 12:53:00 EDT, H... Start Date: 08/28/19 Status: Ordered Problem List Condition Effective Dates Status Health Status Informant Allergic rhinitis(Confirmed) Active Edema(Confirmed) Active Headache(Confirmed)1 Active Left inguinal pain(Confirmed) Active Vestibular migraine(Confirmed) Active Vertigo(Confirmed)2, 3 Active Vitamin D deficiency(Confirmed) Active 1Tried pt for, seen in ED for 04/[address] Cervical ROM found to elicit LOGAN during PT.She was referred to [id number] Dr Muñiz. In [place] [id number] tried PT for 04/15/16 Social History Social History Type Response Smoking Status Former smoker; Tobacco use t imes per day: Smoke less the a pack a day; Started at age: 17; Stopped at age: 30; entered on: 06/29/16 Sex
--- OUTSIDE RECORDS SUMMARY | 2022-02-24 08:11 | XMS_ITS | Continuity of Care Document ---
:1950 Author Organization [facility] Address Unavailable , Care Team Providers Name Role Phone Salinas Broussard MD Primary Care Physician En[place] [facility] [place] Date(s): 12/21/21 - 12/28/21 [facility] Encounter Diagnosis Hemorrhoids (Discharge Diagnosis) - 12/21/21 Attending Physician: John FIERRO, Sandi Baker Referring Physician: Salinas Broussard MD Allergies, Adverse Reactions, Alerts Substance Reaction Severity Status erythromycin Palpation Active amoxicillin-clavulanate full body rash, nausea and vomitting Active garlic SEVERE DIARRHEA Active Other Environmental Allergy seasonal allergies-sneezing and Active congestion Immunizations Given and Recorded Vaccine Date Status Refusal Reason SARS-CoV-2 mRNA (rjpabza-uipw-nvbnj) vax 08/13/21 Recorde d pneumococcal 23-valent vaccine [...] Given tetanus/diphtheria/pertussis, acel(Tdap) 06/29/16 Given 1Location History: [id number] Comment: [id number] Medications Colace sodium 100 mg oral capsule 100 mg, 1, capsule, By Mouth, 2 times a day, Stop if you develop diarrhea, # 60 capsule, Refills 1, Tot. Refills 1, Maintenance, 11/22/21 12:06:00 EDT, Route to Pharmacy Electronically, [facility]/pharmacy #[id number], Partial fill upon patient request if the pres... Start Date: 11/22/21 Status: OrderedMultivitamin 1 tablet, By Mouth, Daily in AM, 0 Refills, Maintenance, 11/19/21 13:21:00 EDT, Partial fill upon patient request if the prescription is for a schedule II opioid drug. Start Date: 11/19/21 Status: OrderedoxyCODONE 5 mg oral tablet 5 mg, 1, tablet, By Mouth, Every 6 hours, PRN, # 28 tablet, Refills 0, Tot. Refills 0, Maintenance, as needed for pain, 11/22/21 12:05:00 EDT, Route to Pharmacy Electronically, [id number], Partial fill upon patient request if the prescription... Start Date: 11/22/21 Status: OrderedValium 5 mg oral tablet 5 mg, 1, tablet, By Mouth, 3 times a day, PRN, Do not take with oxycodone, # 21 tablet, Refills 0, Tot. Refills 0, Maintenance, Spasm, 11/22/21 12:05:00 EDT, Route to Pharmacy Electronically, [facility]/pharmacy #[id number], Partial fill upon patient request if th... Start Date: 11/22/21 Status: Ordered Problem List Condition Effective Dates Status Health Status Informant Acute bronchitis(Confirmed) Active Acute conjunctivitis(Confirmed) Active Allergic rhinitis(Confirmed) Active Edema(Confirmed) Active Headache(Confirmed)1 Active Hemorrhoids(Confirmed) Active Left inguinal pain(Confirmed) Active Vestibular migraine(Confirmed) Active Pharyngitis(Confirmed) Active Vertigo(Confirmed)2, 3 Active Vitamin D deficiency(Confirmed) Active 1Tried pt for, seen in ED for 04/[address] Cervical ROM found to elicit LOGAN during PT.She was referred to [id number] Dr Muñiz. In [place]3 tried PT for 04/15/16 Diagnosis Diagnosis Type Effective Dates Health Status Clinical Serv ice Informant Hemorrhoids Discharge 12/21/21 Diagnosis Vital Signs Most recent to oldest [Reference Range]: 1 Height 157.48 cm (12/21/21 9:47 AM) Weight 45.9 kg (12/21/21 9:47 AM) Pulse Rate [55-90 bpm] 91 bpm *H* (12/21/21 9:47 AM) Body Mass Index [18.5-24.99] 18.51 (12/21/21 9:47 AM) Blood Pressure [90-138/55-84 mm Hg] 125/86 mm Hg (12/21/21 9:47 AM) Respiratory Rate [16-30 br/min] 16 br/min (12/21/21 9:47 AM) Temperature [96.8-100.4 DegF] 96.8 DegF (12/21/21 9:47 AM) Social History Social History Type Response Smoking Status Former smoker; Tobacco use t imes per day: Smoke less the a pack a day; Started at age: 17; Stopped at age: 30; entered on: 06/29/16 Sex
--- OUTSIDE RECORDS SUMMARY | 2022-02-24 08:11 | XMS_ITS | Continuity of Care Document ---
:1950 Author Organization [facility] Address [address] [place] [address]- Care Team Providers Name Role Phone Salinas Broussard MD Primary Care Physician Encounter [facility] [place] Date(s): 09/02/19 - 10/18/19 [facility] [address] [place] [address]- [facility] Attending Physician: Salinas Broussard MD Allergies, Adverse Reactions, Alerts Substance Reaction Severity Status erythromycin Palpation Active amoxicillin-clavulanate Active garlic SEVERE DIARRHEA Active Seasonale Active Immunizations Given and Recorded Vaccine Date Status Refusal Reason pneumococcal 13-valent vaccine1 08/27/18 Given pneumococcal 13-valent vaccine 06/29/16 Given influenza virus vaccine, inactivated2 02/12/17 Recorded influenza virus vaccine, inactivated 01/12/16 Recorded tetanus/diphtheria/pertussis, acel(Tdap) 06/29/16 Given 1Result Comment: [id number] History: [facility] Medications Flax Seed Oil 0 Refills, Maintenance, 07/18/17 15:01:23 Start Date: 07/18/17 Status: OrderedFlonase 50 mcg/inh nasal spray 1 sprays, Nares, Both, 2 times a day, # 16 Gm, 3 Refills, Maintenance, 09/27/19 7:39:00 EDT, [place], [id number], 1 sprays Nares, Both 2 times a day, 157.5, cm, 09/02/19 14:02:00 EDT, Height Start Date: 09/27/19 Status: Orderedfurosemide 20 mg oral tablet 20 mg, 1, tablet, By Mouth, Every 48 hours, # 15 tablet, Refills 5, Tot. Refills 5, Soft Stop, 04/24/19 16:36:06 EST, Route to Pharmacy Electronically, [id number], [facility]/pharmacy #[id number], 157.5, cm, 08/27/18 12:53:43 EDT, Height [...] 08/28/2015:41:00 EDT, Aerosol, Route to Pharmacy Electronically, [id number], [facility]/pharmacy #[id number], 157.5, cm, 08/27/18 12:53:00 EDT, H... [...] elicit LOGAN during PT.She was referred to [id number] Dr Muñiz. In [place] [address] tried PT for 04/15/16 Social History Social History Type Response Smoking Status Former smoker; Tobacco use t imes per day: Smoke less the a pack a day; Started at age: 17; Stopped at age: 30; entered on: 06/29/16 Sex
--- OUTSIDE RECORDS SUMMARY | 2022-02-24 08:11 | XMS_ITS | Continuity of Care Document ---
:1950 Author Organization [facility] Address [address] [facility], [address] [address]- Care Team Providers Name Role Phone Salinas Broussard MD Primary Care Physician Encounter 07/07/21 - 07/14/21 [facility] [address], [address] [place] [address]- Attending Physician: Salinas Broussard MD Admitting Physician: Salinas Broussard MD Referring Physician: Salinas Broussard MD Allergies, Adverse Reactions, Alerts Substance Reaction Severity Status erythromycin Palpation Active Seasonale Active amoxicillin-clavulanate Active garlic SEVERE DIARRHEA Active Immunizations Given and Recorded Vaccine Date Status Refusal Reason pneumococcal 23-valent vaccine 05/28/21 Recorded SARS-CoV-2 (COVID-19) [...] Given tetanus/diphtheria/pertussis, acel(Tdap) 06/29/16 Given 1Location History: [id number] Comment: Problem List Condition Effective Dates Status Health Status Informant Allergic rhinitis(Confirmed) Active Edema(Confirmed) Active Headache(Confirmed)1 Active Left inguinal pain(Confirmed) Active Vestibular migraine(Confirmed) Active Vertigo(Confirmed)2, 3 Active Vitamin D deficiency(Confirmed) Active 1Tried pt for, seen in ED for 04/[address] Cervical ROM found to elicit LOGAN during PT.She was referred to [id number] Dr Muñiz. In [place]3 tried PT for 04/15/16 Social History Social History Type Response Smoking Status Former smoker; Tobacco use t imes per day: Smoke less the a pack a day; Started at age: 17; Stopped at age: 30; entered on: 06/29/16 Sex
--- OUTSIDE RECORDS SUMMARY | 2022-02-24 08:11 | XMS_ITS | Continuity of Care Document ---
:1950 Author Organization [facility] Address [address] [place] [address]- Care Team Providers Name Role Phone Salinas Broussard MD Primary Care Physician [place] [facility] [place] 11/22/21 - 11/22/[address] [address]- Discharge Disposition: A-D/C Home Attending Physician: Nicky Schrader MD Admitting Physician: Nicky Schrader MD Referring Physician: Nicky Schrader MD Allergies, Adverse Reactions, Alerts Substance Reaction Severity Status erythromycin Palpation Active Other Environmental Allergy seasonal allergies-sneezing and Active congestion amoxicillin-clavulanate full body rash, nausea and vomitting Active garlic SEVERE DIARRHEA Active Immunizations Given and Recorded Vaccine Date Status Refusal Reason SARS-CoV-2 mRNA (lnfurpi-rzyf-firtt) vax 08/13/21 Recorde d pneumococcal 23-valent vaccine [...] Given tetanus/diphtheria/pertussis, acel(Tdap) 06/29/16 Given 1Location History: [id number] Comment: [id number] Medications Colace sodium 100 mg oral capsule 100 mg, 1, capsule, By Mouth, 2 times a day, Stop if you develop diarrhea, # 60 capsule, Refills 1, Tot. Refills 1, Maintenance, 11/22/21 12:06:00 EDT, Route [facility], [id number], [...] if the prescription... Start Date: 11/22/21 Status: OrderedPercocet-5 Tablet 1 tablet, Tablet, By Mouth, Every 4 hours, in PACU ONLY, PRN for Pain , Mild, if patient can tolerate po, Routine, 11/22/21 13:15:00 EDT Start Date: 11/22/21 Stop Date: 11/29/21 Status: OrderedValium 5 mg oral tablet 5 [...] elicit LOGAN during PT.She was referred to [id number] Dr Muñiz. In [place]3 tried PT for 04/15/16 Vital Signs Most recent to oldest 1 2 3 [Reference Range]: Height 157.48 cm 157.48 cm (11/22/21 11:58 AM) (11/19/21 1:46 PM) Weight 45.8 kg 45.00 kg (11/22/21 11:58 AM) (11/19/21 1:46 PM) Oxygen Saturation [94-100 100 % 99 % 98 % %] (11/22/21 1:45 PM) (11/22/21 1:30 PM) (11/22/21 1:1 5 PM) Pulse Rate [55-90 bpm] 71 bpm (11/22/21 11:58 AM) Body Mass Index 18.47 18.15 [18.5-24.99] *L* *L* (11/22/21 11:58 AM) (11/19/21 1:46 PM) Blood Pressure 128/65 mm Hg 111/78 mm Hg 111/78 mm Hg [90-138/55-84 mm Hg] (11/22/21 1:45 PM) (11/22/21 1:30 PM) ( 2 1:15 PM) Respiratory Rate [16-30 16 br/min 26 br/min 22 br/mi n br/min] (11/22/21 2:22 PM) (11/22/21 1:45 PM) (11/22/21 1:3 0 PM) Temperature [96.8-100.4 97.4 DegF 98.3 DegF DegF] (11/22/21 1:15 PM) (11/22/21 11:58 AM) Mode of Delivery (Oxygen) Room air Room air Room a ir (11/22/21 2:30 PM) (11/22/21 1:45 PM) (11/22/21 1:1 5 PM) Blood pressure sites Arm, left Arm, left Arm, left (11/22/21 1:45 PM) (11/22/21 1:15 PM) (11/22/21 11: 58 AM) Temperature Route Temporal Temporal (11/22/21 1:15 PM) (11/22/21 11:58 AM) Dry Weight 45.00 kg (11/19/21 1:46 PM) Weight Obtained Via Patient/family stated (11/19/21 1:46 PM) Dry Weight Obtained Via Patient/family stated (11/19/21 1:46 PM) Social History Social History Type Response Smoking Status Former smoker; Tobacco use t imes per day: Smoke less the a pack a day; Started at age: 17; Stopped at age: 30; entered on: 06/29/16 Sex
--- OUTSIDE RECORDS SUMMARY | 2022-02-24 08:11 | XMS_ITS | Continuity of Care Document ---
:1950 Author Organization [facility] Address [address] [place] [address]- Care Team Providers Name Role Phone Salinas Broussard MD Primary Care Physician [place] [facility] [place](s): 10/06/21 - 10/13/21 [facility] [address] [place] [address]- Attending Physician: Salinas Broussard MD Allergies, Adverse Reactions, Alerts Substance Reaction Severity Status erythromycin Palpation Active amoxicillin-clavulanate Active garlic SEVERE DIARRHEA Active Seasonale Active Immunizations Given and Recorded Vaccine Date Status Refusal Reason SARS-CoV-2 mRNA (xgsowtm-fcka-bvgsb) vax 08/13/21 Recorde d pneumococcal 23-valent vaccine [...] Given tetanus/diphtheria/pertussis, acel(Tdap) 06/29/16 Given 1Location History: [id number] Comment: [id number] Medications ciprofloxacin 0.3% ophthalmic solution 0 Refills, Maintenance, 09/21/21 12:54:00 EDT, Partial fill upon patient request if the prescriptionis for a schedule II opioid drug. Start Date: 09/21/21 Status: Orderedhydrocortisone topical 25 mg suppository 1 supp = 25 mg, Rectally, 2 times a day, # 28 supp, 1 Refills, Maintenance, 07/30/21 8:57:00 EDT, Suppository, [facility]/pharmacy #[id number], Partial fill upon patient request if the prescription is for a schedule II opioid drug., 157.5, cm, 07/29/21 16:09:00 ED... Start Date: 07/30/21 Stop Date: 08/27/21 Status: Ordered Problem List Condition Effective Dates [...] elicit LOGAN during PT.She was referred to [id number] Dr Muñiz. In [place]3 tried PT for 04/15/16 Vital Signs Most recent to oldest [Reference Range]: 1 Height 157.5 cm (10/06/21 4:31 PM) Social History Social History Type Response Smoking Status Former smoker; Tobacco use t imes per day: Smoke less the a pack a day; Started at age: 17; Stopped at age: 30; entered on: 06/29/16 Sex
--- OUTSIDE RECORDS SUMMARY | 2022-02-24 08:11 | XMS_ITS | Continuity of Care Document ---
:1950 Author Organization [facility] Address [address] [place] [address]- Care Team Providers Name Role Phone Salinas Broussard MD Primary Care Physician [place] [facility] [place](s): 10/07/21 - 11/06/21 [facility] [address] [place] [address]- Attending Physician: Admtr, Hanna Admitting Physician: Admtr, Hanna Referring Physician: Admtr, Ar8 Allergies, Adverse Reactions, Alerts Substance Reaction Severity Status erythromycin Palpation Active amoxicillin-clavulanate Active garlic SEVERE DIARRHEA Active Seasonale Active Immunizations Given and Recorded Vaccine Date Status Refusal Reason SARS-CoV-2 mRNA (lquosrg-wehp-ntvhf) vax 08/13/21 Recorde d pneumococcal 23-valent vaccine [...] Given tetanus/diphtheria/pertussis, acel(Tdap) 06/29/16 Given 1Location History: [id number] Comment: [id number] Medications ciprofloxacin 0.3% ophthalmic solution 0 Refills, Maintenance, 09/21/21 12:54:00 EDT, Partial fill upon patient request if the prescriptionis for a schedule II opioid drug. Start Date: 09/21/21 Status: Orderedhydrocortisone topical 25 mg suppository 1 supp = 25 mg, Rectally, 2 times a day, # 28 supp, 1 Refills, Maintenance, 07/30/21 8:57:00 EDT, Suppository, [facility]/pharmacy #[id number], Partial fill upon patient request if the prescription is for a schedule II opioid drug., 157.5, cm, 07/29/21 16:09:00 ED... Start Date: 07/30/21 Stop Date: 08/27/21 Status: OrderedPlenvu oral powder for reconstitution See Instructions, split dose 1/2 dose day before 1/2 dose day of procedure (6hrs before procedure), # 1,000 mL, 0 Refills, Maintenance, 10/21/21 16:18:00 EDT, [facility]/pharmacy #[id number], Partial fill upon patient [...] elicit LOGAN during PT.She was referred to [id number] Dr Muñiz. In [place]3 tried PT for 04/15/16 Social History Social History Type Response Smoking Status Former smoker; Tobacco use t imes per day: Smoke less the a pack a day; Started at age: 17; Stopped at age: 30; entered on: 06/29/16 Sex
--- OUTSIDE RECORDS SUMMARY | 2022-02-24 08:11 | XMS_ITS | Continuity of Care Document ---
:1950 Author Organization [facility] Address [address] [place] [address]- Care Team Providers Name Role Phone Salinas Broussard MD Primary Care Physician En[place] [facility] [place]s): 08/01/19 - 08/08/19 [facility] [address] [place] [address]- [facility] Encounter Diagnosis Viral syndrome (Discharge Diagnosis) - 08/01/19 Attending Physician: Salinas Broussard MD Allergies, Adverse Reactions, Alerts Substance Reaction Severity Status erythromycin Palpation Active amoxicillin-clavulanate Active garlic SEVERE DIARRHEA Active Seasonale Active Immunizations Given and Recorded Vaccine Date Status Refusal Reason pneumococcal 13-valent vaccine1 08/27/18 Given pneumococcal 13-valent vaccine 06/29/16 Given influenza virus vaccine, inactivated2 02/12/17 Recorded influenza virus vaccine, inactivated 01/12/16 Recorded tetanus/diphtheria/pertussis, acel(Tdap) 06/29/16 Given 1Result Comment: [id number] History: [facility] Medications Flax Seed Oil 0 Refills, Maintenance, 07/18/17 15:01:23 Start Date: 07/18/17 Status: Orderedfurosemide 20 mg oral tablet 20 mg, 1, tablet, By Mouth, Every 48 hours, # 15 tablet, Refills 5, Tot. Refills 5, Soft Stop, 04/24/19 16:36:06 EST, Route to Pharmacy Electronically, [id number], [facility]/pharmacy #[id number], 157.5, cm, 08/27/18 12:53:43 EDT, Height Start Date: 04/24/19 Status: OrderedMultivitamin Daily, 0 Refills, Maintenance, 07/18/17 15:01:18 Start Date: 07/18/17 Status: OrderedPremarin 0.625 mg oral tablet 1 tablet = 0.625 mg, By Mouth, Daily, # 30 tablet, 0 Refills, Maintenance, 06/08/16 8:29:41, Tablet Start Date: 06/08/16 Status: Ordered Problem List Condition Effective Dates Status Health Status Informant Allergic rhinitis(Confirmed) Active Edema(Confirmed) Active Headache(Confirmed)1 Active Left inguinal pain(Confirmed) Active Vestibular migraine(Confirmed) Active Vertigo(Confirmed)2, 3 Active Vitamin D deficiency(Confirmed) Active 1Tried pt for, seen in ED for 04/[address] Cervical ROM found to elicit LOGAN during PT.She was referred to [id number] Dr Muñiz. In [place]3 tried PT for 04/15/16 Diagnosis Diagnosis Type Effective Dates Health Status Clinical In formant Service Viral syndrome Discharge 08/01/19 Diagnosis Social History Social History Type Response Smoking Status Former smoker; Tobacco use t imes per day: Smoke less the a pack a day; Started at age: 17; Stopped at age: 30; entered on: 06/29/16 Sex
--- OUTSIDE RECORDS SUMMARY | 2022-02-24 08:11 | XMS_ITS | Continuity of Care Document ---
:1950 Author Organization [facility] Address [address] [place] [address]- Care Team Providers Name Role Phone Bobo THOMAS, Salinas Jaffe Primary Care Physician Encounter [facility] [place] Date(s): 10/29/21 - 11/28/21 [facility] [address] [place] [address]- Allergies, Adverse Reactions, Alerts Substance Reaction Severity Status erythromycin Palpation Active amoxicillin-clavulanate full body rash, nausea and vomitting Active garlic SEVERE DIARRHEA Active Other Environmental Allergy seasonal allergies-sneezing and Active congestion Immunizations Given and Recorded Vaccine Date Status Refusal Reason SARS-CoV-2 mRNA (bmaazby-glht-pkaxo) vax 08/13/21 Recorde d pneumococcal 23-valent vaccine [...] Given tetanus/diphtheria/pertussis, acel(Tdap) 06/29/16 Given 1Location History: [id number] Comment: [id number] Medications Colace sodium 100 mg oral capsule [...] elicit LOGAN during PT.She was referred to [id number] Dr Galvez In [place]3 tried PT for 04/15/16 Social History Social History Type Response Smoking Status Former smoker; Tobacco use t imes per day: Smoke less the a pack a day; Started at age: 17; Stopped at age: 30; entered on: 06/29/16 Sex
--- OUTSIDE RECORDS SUMMARY | 2022-02-24 08:11 | XMS_ITS | Continuity of Care Document ---
:1950 Author Organization [facility] Address [address] [place] [address]- Care Team Providers Name Role Phone Salinas Broussard MD Primary Care Physician Encounter [facility] [place] Date(s): 07/07/21 - 07/14/21 [facility] [address] [place] [address]- Attending Physician: Salinas Broussard MD Allergies, Adverse [...] Given tetanus/diphtheria/pertussis, acel(Tdap) 06/29/16 Given 1Location History: [id number] Comment: Medications No Known Medications Problem List Condition Effective Dates Status Health Status Informant Allergic rhinitis(Confirmed) Active Edema(Confirmed) Active Headache(Confirmed)1 Active Left inguinal pain(Confirmed) Active Vestibular migraine(Confirmed) Active Vertigo(Confirmed)2, 3 Active Vitamin D deficiency(Confirmed) Active 1Tried pt for, seen in ED for 04/[address] Cervical ROM found to elicit LOGAN during PT.She was referred to [id number] Dr Muñiz. In [place]3 tried PT for 04/15/16 Vital Signs Most recent to oldest [Reference Range]: 1 Height 157.5 cm (07/07/21 1:53 PM) Weight 46.6 kg (07/07/21 1:53 PM) Oxygen Saturation [94-100 %] 100 % (07/07/21 1:53 PM) Pulse Rate [55-90 bpm] 84 bpm (07/07/21 1:53 PM) Body Mass Index [18.5-24.99] 18.79 (07/07/21 1:53 PM) Blood Pressure [90-138/55-84 mm Hg] 133/72 mm Hg (07/07/21 1:53 PM) Blood pressure sites Arm, right (07/07/21 1:53 PM) Weight Obtained Via Standing scale (07/07/21 1:53 PM) Social History Social History Type Response Smoking Status Former smoker; Tobacco use t imes per day: Smoke less the a pack a day; Started at age: 17; Stopped at age: 30; entered on: 06/29/16 Sex
--- OUTSIDE RECORDS SUMMARY | 2022-02-24 08:11 | XMS_ITS | Continuity of Care Document ---
:1950 Author Organization [facility] Address [address] [place] [address]- Care Team Providers Name Role Phone Salinas Broussard MD Primary Care Physician Encounter [facility] Date(s): 10/05/21 - 11/04/21 [facility] [address] [place] [address]- Allergies, Adverse Reactions, Alerts Substance Reaction Severity Status erythromycin Palpation Active garlic SEVERE DIARRHEA Active Seasonale Active amoxicillin-clavulanate Active Immunizations Given and Recorded Vaccine Date Status Refusal Reason SARS-CoV-2 mRNA (dmbxtbq-ophx-hcoyc) vax 08/13/21 Recorde d pneumococcal 23-valent vaccine [...] Given tetanus/diphtheria/pertussis, acel(Tdap) 06/29/16 Given 1Location History: [id number] Comment: Medications ciprofloxacin 0.3% ophthalmic solution 2 drops, Eye, Right, Every 4 hours, for 5 days, # 5 mL, 0 Refills, Acute 11/06/21 9:08:00 EDT, 11/01/21 9:08:00 EDT, [id number], Partial fill upon patient request if the prescription is for a schedule II opioid drug., 2 drops Eye, Right Every... Start Date: 11/01/21 Stop Date: 11/06/21 Status: Orderedciprofloxacin 0.3% ophthalmic solution 0 Refills, Maintenance, 09/21/21 12:54:00 EDT, Partial fill upon patient request if the prescriptionis for a schedule II opioid drug. Start Date: 09/21/21 Status: Orderedhydrocortisone topical 25 mg suppository 1 supp = 25 mg, Rectally, 2 times a day, # 28 supp, 1 Refills, Maintenance, 07/30/21 8:57:00 EDT, [facility]ository, [id number], Partial fill upon patient request if the prescription is for a schedule II opioid drug., 157.5, cm, 07/29/21 16:09:00 ED... Start Date: 07/30/21 Stop Date: 08/27/21 Status: OrderedPlenvu oral powder for reconstitution See Instructions, split dose 1/2 dose day before 1/2 dose day of procedure (6hrs before procedure), # 1,000 mL, 0 Refills, Maintenance, 10/21/21 16:18:00 EDT, [id number], Partial fill upon patient request [...] elicit LOGAN during PT.She was referred to [id number] Dr Galvez In [place]3 tried PT for 04/15/16 Social History Social History Type Response Smoking Status Former smoker; Tobacco use t imes per day: Smoke less the a pack a day; Started at age: 17; Stopped at age: 30; entered on: 06/29/16 Sex
--- OUTSIDE RECORDS SUMMARY | 2022-02-24 08:11 | XMS_ITS | Continuity of Care Document ---
:1950 Author Organization [facility] Adult Address [address] [place] [address]- Care Team Providers Name Role Phone Bobo THOMAS, Salinas Jaffe Primary Care Physician Encounter [facility] [place] Date(s): 09/21/21 - 09/28/21 [facility] Adult [address] [place] [address]- Encounter Diagnosis Acute bronchitis (Discharge Diagnosis) - 09/21/21 Acute conjunctivitis (Discharge Diagnosis) - 09/21/21 Pharyngitis (Discharge Diagnosis) - 09/21/21 Attending Physician: Sadie FIERRO, Vero Allergies, Adverse Reactions, Alerts Substance Reaction Severity Status erythromycin Palpation Active Seasonale Active amoxicillin-clavulanate Active garlic SEVERE DIARRHEA Active Immunizations Given and Recorded Vaccine Date Status Refusal Reason SARS-CoV-2 mRNA ([id number]-[id number]-dgtoi) vax 08/13/21 Recorde d pneumococcal 23-valent vaccine [...] Given tetanus/diphtheria/pertussis, acel(Tdap) 06/29/16 Given 1Location History: [id number] Comment: [id number] Medications ciprofloxacin 0.3% ophthalmic solution 0 Refills, Maintenance, 09/21/21 12:54:00 EDT, Partial fill upon patient request if the prescriptionis for a schedule II opioid drug. Start Date: 09/21/21 Status: Ordereddoxycycline monohydrate 100 mg oral capsule 0 Refills, Maintenance, 09/21/21 12:54:00 EDT, Partial fill upon patient request if the prescriptionis for a schedule II opioid drug. Start Date: 09/21/21 Status: Orderedhydrocortisone topical 25 mg suppository 1 supp = 25 mg, Rectally, 2 times a day, # 28 supp, 1 Refills, Maintenance, 07/30/21 8:57:00 EDT, Suppository, [facility]/pharmacy #[id number], Partial fill upon patient request [...] elicit LOGAN during PT.She was referred to [id number] Dr Muñiz. In [place] [id number] tried PT for 04/15/16 Diagnosis Diagnosis Type Effective Dates Health Clinical Infor mant Status Service Acute bronchitis Discharge 09/21/21 Diagnosis Acute conjunctivitis Discharge 09/21/21 Diagnosis Pharyngitis Discharge 09/21/21 Diagnosis Vital Signs Most recent to oldest [Reference Range]: 1 Height 157.5 cm (09/21/21 12:58 PM) Temperature [96.8-100.4 DegF] 99.6 DegF (09/21/21 12:58 PM) Temperature Route Oral (09/21/21 12:58 PM) Social History Social History Type Response Smoking Status Former smoker; Tobacco use t imes per day: Smoke less the a pack a day; Started at age: 17; Stopped at age: 30; entered on: 06/29/16 Sex
--- OUTSIDE RECORDS SUMMARY | 2022-02-24 08:11 | XMS_ITS | Continuity of Care Document ---
:1950 Author Organization [facility] Address Unavailable , Care Team Providers Name Role Phone Salinas Broussard MD Primary Care Physician [place] [facility] [place] 10[place]12[place]21 [place] 10/19/21 [facility] Attending Physician: Nicky Schrader MD Referring Physician: Salinas Broussard MD Allergies, Adverse Reactions, Alerts Substance Reaction Severity Status erythromycin Palpation Active amoxicillin-clavulanate Active garlic SEVERE DIARRHEA Active Seasonale Active Immunizations Given and Recorded Vaccine Date Status Refusal Reason SARS-CoV-2 mRNA (lpybysb-ducy-fxbva) vax 08/13/21 Recorde d pneumococcal 23-valent vaccine [...] Given tetanus/diphtheria/pertussis, acel(Tdap) 06/29/16 Given 1Location History: [id number] Comment: Medications ciprofloxacin 0.3% ophthalmic solution 0 Refills, Maintenance, 09/21/21 12:54:00 EDT, Partial fill upon patient request if the prescriptionis for a schedule II opioid drug. Start Date: 09/21/21 Status: Orderedhydrocortisone topical 25 mg suppository 1 supp = 25 mg, Rectally, 2 times a day, # 28 supp, 1 Refills, Maintenance, 07/30/21 8:57:00 EDT, Suppository, [facility]/pharmacy #[id number], Partial fill upon patient request if [...] elicit LOGAN during PT.She was referred to [id number] Dr Muñiz. In [place]3 tried PT for 04/15/16 Social History Social History Type Response Smoking Status Former smoker; Tobacco use t imes per day: Smoke less the a pack a day; Started at age: 17; Stopped at age: 30; entered on: 06/29/16 Sex
--- OUTSIDE RECORDS SUMMARY | 2022-02-24 08:11 | XMS_ITS | Continuity of Care Document ---
:1950 Author Organization [facility] Adult Address [address] [place] [address]- Care Team Providers Name Role Phone Bobo THOMAS, Salinas Jaffe Primary Care Physician [place] [facility] [place] 09/18/19 - 10/18/19 [facility] Adult [address] [place] [address]- [facility] Attending Physician: Hanna Gonzalez Admitting Physician: AdmHanna perez Referring Physician: AdmtrHanna Allergies, Adverse Reactions, Alerts Substance Reaction Severity Status erythromycin Palpation Active amoxicillin-clavulanate Active garlic SEVERE DIARRHEA Active Seasonale Active Immunizations Given and Recorded Vaccine Date Status Refusal Reason pneumococcal 13-valent vaccine1 08/27/18 Given pneumococcal 13-valent vaccine 06/29/16 Given influenza virus vaccine, inactivated2 02/12/17 Recorded influenza virus vaccine, inactivated 01/12/16 Recorded tetanus/diphtheria/pertussis, acel(Tdap) 06/29/16 Given 1Result Comment: [id number] History: [facility] Medications Flax Seed Oil 0 Refills, Maintenance, 07/18/17 15:01:23 Start Date: 07/18/17 Status: OrderedFlonase 50 mcg/inh nasal spray 1 sprays, Nares, Both, 2 times a day, # 16 Gm, 3 Refills, Maintenance, 09/27/19 7:39:00 EDT, [place], [id number], 1 sprays Nares, Both 2 times a day, 157.5, cm, 09/02/19 14:02:00 EDT, Height Start Date: 09/27/19 Status: Orderedfurosemide 20 mg oral tablet 20 mg, 1, tablet, By Mouth, Every 48 hours, # 15 tablet, Refills 5, Tot. Refills 5, Soft Stop, 04/24/19 16:36:06 EST, Route to Pharmacy Electronically, [id number], [facility]/pharmacy #0373, 157.5, cm, 08/27/18 12:53:43 EDT, Height [...] 08/28/2015:41:00 EDT, Aerosol, Route to Pharmacy Electronically, [id number], [facility]/pharmacy #0373, 157.5, cm, 08/27/18 12:53:00 EDT, H... [...] elicit LOGAN during PT.She was referred to [id number] Dr Muñiz. In [place]3 tried PT for 04/15/16 Social History Social History Type Response Smoking Status Former smoker; Tobacco use t imes per day: Smoke less the a pack a day; Started at age: 17; Stopped at age: 30; entered on: 06/29/16 Sex
--- OUTSIDE RECORDS SUMMARY | 2022-02-24 08:11 | XMS_ITS | Continuity of Care Document ---
:1950 Author Organization [facility] Address [address] [place] [address] Drive [address] [place] [address]- Care Team Providers Name Role Phone Salinas Broussard MD Primary Care Physician Encounter [facility] Date(s): 12/21/21 - 01/20/[address] [place] [address]- Attending Physician: Hanna Gonzalez Admitting Physician: AdmtrHanna Referring Physician: Admtr, Ar8 Allergies, Adverse Reactions, Alerts Substance Reaction Severity Status erythromycin Palpation Active amoxicillin-clavulanate full body rash, nausea and vomitting Active Other Environmental Allergy seasonal allergies-sneezing and Active congestion garlic SEVERE DIARRHEA Active Immunizations Given and Recorded Vaccine Date Status Refusal Reason SARS-CoV-2 mRNA ([id number]-nfoe-bqhdx) vax 08/13/21 Recorde d pneumococcal 23-valent vaccine [...] Given tetanus/diphtheria/pertussis, acel(Tdap) 06/29/16 Given 1Location History: [id number] Comment: [id number] Medications Colace sodium 100 mg oral capsule 100 mg, 1, capsule, By Mouth, 2 times a day, Stop if you develop diarrhea, # 60 capsule, Refills 1, Tot. Refills 1, Maintenance, 11/22/21 12:06:00 EDT, Route to Pharmacy Electronically, [facility]/pharmacy #[id number], Partial fill upon patient request [...] 11/22/21 12:05:00 EDT, Route to Pharmacy Electronically, [facility]/pharmacy #[id number], Partial fill upon patient request [...] elicit LOGAN during PT.She was referred to [id number] Dr Muñiz. In [place]3 tried PT for 04/15/16 Social History Social History Type Response Smoking Status Former smoker; Tobacco use t imes per day: Smoke less the a pack a day; Started at age: 17; Stopped at age: 30; entered on: 06/29/16 Sex Care Team PersonnelName: Bobo TOHMAS, Salinas Jaffe Address: [address] [place] [id number]
--- OUTSIDE RECORDS SUMMARY | 2022-02-24 08:11 | XMS_ITS | Continuity of Care Document ---
:1950 Author Organization [facility] Adult Address [address] [place] [address]- Care Team Providers Name Role Phone Salinas Broussard MD Primary Care Physician Encounter [facility] [place] Date(s): 09/02/19 - 09/09/19 [facility] Adult [address] [place] [address]- [facility] Attending Physician: Salinas Broussard MD Allergies, Adverse Reactions, Alerts Substance Reaction Severity Status erythromycin Palpation Active amoxicillin-clavulanate Active garlic SEVERE DIARRHEA Active Seasonale Active Immunizations Given and Recorded Vaccine Date Status Refusal Reason pneumococcal 13-valent vaccine1 08/27/18 Given pneumococcal 13-valent vaccine 06/29/16 Given influenza virus vaccine, inactivated2 02/12/17 Recorded influenza virus vaccine, inactivated 01/12/16 Recorded tetanus/diphtheria/pertussis, acel(Tdap) 06/29/16 Given 1Result Comment: [id number] History: [facility] Medications Flax Seed Oil 0 Refills, Maintenance, 07/18/17 15:01:23 Start Date: 07/18/17 Status: OrderedFlonase 50 mcg/inh nasal spray 1 sprays, Nares, Both, 2 times a day, # 16 Gm, 0 Refills, Maintenance, 09/02/19 14:40:00 EDT, [place],[id number], 1 sprays Nares, Both 2 times a day, 157.5, cm, 09/02/19 14:02:00 EDT, Height Start Date: 09/02/19 Status: Orderedfurosemide 20 mg oral tablet 20 mg, 1, tablet, By Mouth, Every 48 hours, # 15 tablet, Refills 5, Tot. Refills 5, Soft Stop, 04/24/19 16:36:06 EST, Route to Pharmacy Electronically, [id number], [facility]/pharmacy #0373, 157.5, cm, 08/27/18 12:53:43 EDT, Height [...] 08/28/2015:41:00 EDT, Aerosol, Route to Pharmacy Electronically, [id number], [facility]/pharmacy #0373, 157.5, cm, 08/27/18 12:53:00 EDT, H... [...] elicit LOGAN during PT.She was referred to [id number] Dr Muñiz. In [place]3 tried PT for 04/15/16 Vital Signs Most recent to oldest [Reference Range]: 1 Height 157.5 cm (09/02/19 2:02 PM) Weight 47.5 kg (09/02/19 2:02 PM) Oxygen Saturation [94-100 %] 98 % (09/02/19 2:02 PM) Pulse Rate [55-90 bpm] 88 bpm (09/02/19 2:02 PM) Body Mass Index [18.5-24.99] 19.15 (09/02/19 2:02 PM) Blood Pressure [90-138/55-84 mm Hg] 126/80 mm Hg (09/02/19 2:02 PM) Temperature [96.8-100.4 DegF] 97.4 DegF (09/02/19 2:02 PM) Mode of Delivery (Oxygen) Room air (09/02/19 2:02 PM) Blood pressure sites Arm, left (09/02/19 2:02 PM) Temperature Route Oral (09/02/19 2:02 PM) Weight Obtained Via Standing scale (09/02/19 2:02 PM) Social History Social History Type Response Smoking Status Former smoker; Tobacco use t imes per day: Smoke less the a pack a day; Started at age: 17; Stopped at age: 30; entered on: 06/29/16 Sex
--- OUTSIDE RECORDS SUMMARY | 2022-02-24 08:11 | XMS_ITS | Continuity of Care Document ---
:[address] [facility] Adult Address [address] [place] [address]- Care Team Providers Name Role Phone Bobo THOMAS, Salinas Jaffe Primary Care Physician Encounter [facility] [place] Date(s): 08/28/19 - 09/04/19 [facility] Adult [address] [place] [address]- [facility] Encounter Diagnosis Cough (Discharge Diagnosis) - 08/28/19 Attending Physician: Sadie FIERRO, Vero Allergies, Adverse Reactions, Alerts Substance Reaction Severity Status erythromycin Palpation Active amoxicillin-clavulanate Active garlic SEVERE DIARRHEA Active Seasonale Active Immunizations Given and Recorded Vaccine Date Status Refusal Reason pneumococcal 13-valent vaccine1 08/27/18 Given pneumococcal 13-valent vaccine 06/29/16 Given influenza virus vaccine, inactivated2 02/12/17 Recorded influenza virus vaccine, inactivated 01/12/16 Recorded tetanus/diphtheria/pertussis, acel(Tdap) 06/29/16 Given 1Result Comment: [id number] History: [facility] Medications Flax Seed Oil 0 Refills, Maintenance, 07/18/17 15:01:23 Start Date: 07/18/17 Status: OrderedFlonase 50 mcg/inh nasal spray 1 sprays, Nares, Both, 2 times a day, # 16 Gm, 0 Refills, Maintenance, 09/02/19 14:40:00 EDT, [place], 1 sprays Nares, Both 2 times a day, 157.5, cm, 09/02/19 14:02:00 EDT, Height Start Date: 09/02/19 Status: Orderedfurosemide 20 mg oral tablet 20 mg, 1, tablet, By Mouth, Every 48 hours, # 15 tablet, Refills 5, Tot. Refills 5, Soft Stop, 04/24/19 16:36:06 EST, Route to Pharmacy Electronically, [id number], [facility]/pharmacy #0373, 157.5, cm, 08/27/18 12:53:43 EDT, Height Start Date: 04/24/19 Status: OrderedMultivitamin Daily, 0 Refills, Maintenance, 07/18/17 15:01:18 Start Date: 07/18/17 Status: OrderedpredniSONE 20 mg oral tablet 1 tablet = 20 mg, By Mouth, 2 times a day, for 5 days, # 10 tablet, 0 Refills, Acute 09/07/19 14:40:00 EDT, 09/02/19 14:40:00 EDT, [facility]/pharmacy #0373, 157.5, cm, 09/02/19 14:02:00 EDT, Height Start Date: 09/02/19 Stop Date: 09/07/19 Status: OrderedPremarin 0.625 mg oral tablet 1 tablet = 0.625 mg, By Mouth, Daily, # 30 tablet, 0 Refills, Maintenance, 06/08/16 8:29:41, Tablet Start Date: 06/08/16 Status: OrderedProAir HFA 90 mcg/inh inhalation aerosol with adapter 2, puffs, Inhalation, Every 6 hours, PRN, # 8.5 Gm, Refills 0, Tot. Refills 0, Maintenance, 08/28/2015:41:00 EDT, Aerosol, Route to Pharmacy Electronically, [id number], [facility]/pharmacy #0373, 157.5, cm, 08/27/18 [...] elicit LOGAN during PT.She was referred to [id number] Dr Muñiz. In [place]3 tried PT for 04/15/16 Diagnosis Diagnosis Type Effective Dates Health Status Clinical Serv ice Informant Cough Discharge 08/28/19 Diagnosis Social History Social History Type Response Smoking Status Former smoker; Tobacco use t imes per day: Smoke less the a pack a day; Started at age: 17; Stopped at age: 30; entered on: 06/29/16 Sex
--- OUTSIDE RECORDS SUMMARY | 2022-02-24 08:11 | XMS_ITS | Continuity of Care Document ---
:1950 Author Organization [facility] Adult Address [address] [place] [address]- Care Team Providers Name Role Phone Salinas Broussard MD Primary Care Physician Encounter [facility] [place] Date(s): 08/01/19 - 08/11/19 [facility] Adult [address] [place] [address]- [facility] Attending Physician: Admtr, Isra8 Admitting Physician: Admtr, Hanna Referring Physician: Admtr, [...] Recorded tetanus/diphtheria/pertussis, acel(Tdap) 06/29/16 Given 1Result Comment: [id number] History: [facility] Medications Flax Seed Oil 0 Refills, Maintenance, 07/18/17 15:01:23 Start Date: 07/18/17 Status: Orderedfurosemide 20 mg oral tablet 20 mg, 1, tablet, By Mouth, Every 48 hours, # 15 tablet, Refills 5, Tot. Refills 5, Soft Stop, 04/24/19 16:36:06 EST, Route to Pharmacy Electronically, [id number], [facility]/pharmacy #0373, 157.5, cm, 08/27/18 12:53:43 EDT, [...] elicit LOGAN during PT.She was referred to [id number] Dr uMñiz. In [place]3 tried PT for 04/15/16 Social History Social History Type Response Smoking Status Former smoker; Tobacco use t imes per day: Smoke less the a pack a day; Started at age: 17; Stopped at age: 30; entered on: 06/29/16 Sex
--- OUTSIDE RECORDS SUMMARY | 2022-02-24 08:11 | XMS_ITS | Continuity of Care Document ---
:1950 Author Organization [facility] Address Unavailable , Care Team Providers Name Role Phone Salinas Broussard MD Primary Care Physician Encounter [facility] Date(s): 07/29/21 - 08/05/21 [facility] Attending Physician: Corina Knox NP Referring Physician: Salinas Broussard MD Allergies, Adverse [...] Given tetanus/diphtheria/pertussis, acel(Tdap) 06/29/16 Given 1Location History: [id number] Comment: [id number] Medications hydrocortisone topical 25 mg suppository 1 supp = [...] Left inguinal pain(Confirmed) Active Vestibular migraine(Confirmed) Active Underweight(Confirmed) Active Vertigo(Confirmed)2, 3 Active Vitamin D deficiency(Confirmed) Active 1Tried pt for, seen in ED for 04/[address] Cervical ROM found to elicit LOGAN during PT.She was referred to [id number] Dr Muñiz. In [place]3 tried PT for 04/15/16 Vital Signs Most recent to oldest [Reference Range]: 1 Height 157.5 cm (07/29/21 4:09 PM) Weight 45.1 kg (07/29/21 4:09 PM) Pulse Rate [55-90 bpm] 89 bpm (07/29/21 4:09 PM) Body Mass Index [18.5-24.99] 18.18 *L* (07/29/21 4:09 PM) Blood Pressure [90-138/55-84 mm Hg] 148/73 mm Hg *H* (07/29/21 4:09 PM) Respiratory Rate [16-30 br/min] 16 br/min (07/29/21 4:09 PM) Temperature [96.8-100.4 DegF] 98 DegF (07/29/21 4:09 PM) Social History Social History Type Response Smoking Status Former smoker; Tobacco use t imes per day: Smoke less the a pack a day; Started at age: 17; Stopped at age: 30; entered on: 06/29/16 Sex
[2022-02-24 08:15] LABS: Basophils Percent Auto 0.6 % (0-2); Eosinophils Absolute Auto 0.1 X10*3/uL (0.0-0.4); Eosinophils Percent Auto 3.1 % (0-4); Hematocrit 36.1 % (37.0-47.0); Hemoglobin 11.9 g/dl (12.0-16.0); Lymphocytes Absolute Auto 1.4 X10*3/uL (1.2-4.9); Mean Corpuscular Hemoglobin 31.4 pg (27.0-33.0); Mean Corpuscular Volume 95.3 fL (80.0-98.0); Mean Platelet Volume 11.1 fL (9.4-12.3); Monocytes Absolute Auto 0.5 X10*3/uL (0.1-1.2); Monocytes Percent Auto 13.4 % (2-11); Neutrophils Absolute Auto 1.6 x10*3/uL (2.0-8.3); Neutrophils Percent Auto 43.9 % (45-73); Platelet Count 169 X10*3/uL (160-400); Red Blood Count 3.79 X10*6/uL (4.20-5.50); Red Cell Distribution Width 13.2 % (11.0-16.0); White Blood Count 3.6 X10*3/uL (4.8-10.8)
[2022-02-24 08:32] LABS: Alanine Aminotransferase 18 U/L (0-31); Albumin Level 4.1 g/dL (3.5-5.0); Alkaline Phosphatase 88 U/L (39-117); Anion Gap 15 (12-20); Aspartate Amino Transferase 27 U/L (5-31); Bilirubin Total 0.7 mg/dL (0.0-1.0); Blood Urea Nitrogen 16 mg/dL (9-16); C Reactive Protein 0.28 mg/dL (< or = 0.50); Calcium 9.4 mg/dL (8.4-10.2); Carbon Dioxide 25 mmol/L (22-29); Chloride 105 mmol/L (96-108); Creatinine Clr Calc Pharmacy 51.9; Estimated Glomerular Filt Rate > 60; Ethanol < 10 mg/dL; Glucose Random 95 mg/dL (60-115); Potassium 4.2 mmol/L (3.3-5.1); Sodium 141 mmol/L (135-145); Total Protein 6.5 g/dL (6.5-8.0)
[2022-02-24 08:52] LABS: Thyroid Stimulating Hormone 2.73 uIU/mL (0.32-4.0)
[2022-02-24 09:26] LABS: Erythrocyte Sedimentation Rate 6 MM/HR (0-20)
[2022-02-24 10:07] LABS: COVID-19 Test Negative (Negative)
[2022-02-24 10:25] LABS: IDNOW Serial# 9DB6401D; Influenza A Negative (Negative); Influenza B2 Negative (Negative)
[2022-02-24 10:50] VITALS: BP 134/77; PULSE 74; RESP 16; O2SAT 99
[2022-03-01 15:42] LABS: ANA Pattern 2 Nuclear, Homogeneous; ANA Titer 2 1:40 titer; Anti Nuclear Antibody Pattern Nuclear, Nucleolar; Anti Nuclear Antibody Screen POSITIVE (NEGATIVE)
== END 2022-02-24 10:54 | disposition home or self-care (01) ==
PROVIDERS: Emergency Provider Student in an Organized Health Care Education/Training Program; PCP Family Medicine
DX: R23.2 Flushing (principal); R21 Rash and other nonspecific skin eruption; Z20.822 Contact with and (suspected) exposure to COVID-19
CPT/HCPCS: 80053; 82077; 84443; 85025; 85652; 86038; 86039; 86140; 87502; 87635; 99283

== ENCOUNTER 2022-11-15 19:03 | Emergency (ER) | payer OTHER, SELFPAY ==
[2022-11-15 19:09] VITALS: BP 151/71; PULSE 58; RESP 16; TEMP 35.9; O2SAT 98; BMI 18.3
--- NOTE | 2022-11-15 19:10 | ED.UPPEXIN ---
HPI - Extremity Injury (Upper) General Chief Complaint: Wound/Laceration Stated Complaint: left hand lac Time Seen by Provider: 11/15/22 19:14 Source: patient, RN notes reviewed and old records reviewed Mode of arrival: ambulatory History of Present Illness HPI narrative: 70-year-old female with no significant past medical history presenting to the ED complaining of laceration to left hand s/p using a knife to open shrimp cocktail container [employer]. Tetanus unknown. Denies injury to other area, numbness, tingling, weakness. MD complaint: injury to: hand Related Data Previous Rx's Medication Instructions Recorded prednisone 20 mg tablet 40 mg PO DAILY 4 days #8 tabs 05/04/21 ciprofloxacin HCl 0.3 % eye drops See Rx Instructions ophthalmic 09/19/21 (eye) .COMPLEX conjuntivitis #2.5 mL doxycycline monohydrate 100 mg 100 mg PO BID #14 caps 09/19/21 capsule ofloxacin 0.3 % eye drops 2 drp ophthalmic (eye) QID 7 days 10/31/21 #10 mL Allergies Allergy/AdvReac Type Severity Reaction Status Date / Time amoxicillin [From AUGMENTIN] Allergy Severe HIVES, Verified 11/15/22 19:09 ITCHING clavulanic acid Allergy Severe HIVES, Verified 11/15/22 19:09 [From AUGMENTIN] ITCHING erythromycin base Allergy Intermediate HEART Verified 11/15/22 19:09 [Erythromycin Base] PALPATATIONS diphenhydramine Allergy Unknown HIVES Verified 11/15/22 19:09 [From BENADRYL] garlic Allergy Unknown UNKNOWN Verified 11/15/22 19:09 onion [Onion] Allergy Unknown UNKNOWN Verified 11/15/22 19:09 Review of Systems Review of Systems: Constitutional: No Fever, No Chills Cardiovascular: No Chest Pain, No SOB Respiratory: No Cough, No Sputum, No Wheezing Musculoskeletal: No joint pain, No Myalgias, No Joint Swelling Skin: + laceration, No rash Neuro: No Weakness, No Numbness, No Paresthesias Yes all other systems are reviewed and are negative Constitutional: Constitutional: Reports as per [facility] Past Medical History Attestation statement: The following information was validated with the patient. Source: old records reviewed Social History Social History Advance Directives: No Advance Directives Information Provided: No Physical Exam Vital Signs: Vital Signs: Last Vital Signs Temp 96.7 F L 11/15/22 19:09 Pulse 58 11/15/22 19:09 Resp 16 11/15/22 19:09 BP 151/71 H 11/15/22 19:09 Pulse Ox 98 11/15/22 19:09 O2 Del Method Room Air 11/15/22 19:09 BMI result Body Mass Index 18.3 Const: General: cooperative, healthy appearing and no acute distress Orientation/consciousness: patient oriented x3 Limitations: no limitations HEENT: Head: Yes normal to inspection and Yes atraumatic Ears: hearing grossly normal bilaterally General nose exam: Normal external nose present Face and sinus: Yes normal facial exam Eyes: General: appearance normal, both eyes and all related structures EOM: EOMs intact bilaterally Neck: Neck: Yes normal visual inspection and Yes no meningeal signs Resp: Effort & Inspection: normal respiratory effort and no respiratory distress Cardio: Rate: regular rate Peripheral pulses: radial pulses present and ulnar radial pulses present Skin: Other: 1cm laceration noted to left hand dorsal aspect between 1st and 2nd digit. Bleeding controlled. Underlying structures appear intact. FROM/NV intact, sensation intact to light touch Rashes: no rashes Neuro: General: patient oriented x3, gait normal, tone normal, moves all extremities, no meningeal signs and no focal motor deficits Gait exam (Neuro): Normal gait present Extrem: General: Yes normal to inspection Medical Decision Making Medical Decision Making MDM Narrative: 70-year-old female with no significant past medical history presenting to the ED complaining of laceration to left hand s/p using a knife to open shrimp cocktail container [employer]. On exam vital signs stable, NAD, nontoxic appearing, physical exam as noted above with 1 cm laceration noted to dorsal aspect of left hand between 1st and 2nd digits. Lower suspicion for tendon/ligamental or deeper injury. No evidence of cellulitis. Plan: Update tetanus, repair wound Results discussed with patient including worrisome signs and symptoms and strict return precautions, and when to return to the emergency department. They verbalized understanding and feel safe for discharge at this time. Differential Diagnosis Differential Diagnoses: The differential diagnosis associated with the presentation includes As above Independent Historian Clinical information obtained from an independent historian. History obtained from or confirmed by: Spouse External Record Review External record reviewed: Inpatient record, Office record, Outpatient record, Prior outpatient labs, Prior outpatient radiology, Primary care record and Outside ED record Tests considered The following testing was considered but not selected: As above Prescription Management I considered prescription management with: Pain Medication and Antibiotic (considered but not needed at this time) Procedures Laceration Laceration 1: Site: hand Side (If applicable): left Size (cm): 1 Description: linear Depth: simple, single layer Local Anesthetic: lidocaine 1% Amount of anesthesia used (mL): 1 Pre-repair: wound explored Size (cm): 5-0 Number of sutures: 2 Technique: simple, interrupted Discharge Plan Discharge Clinical Impression: Laceration Patient Disposition: Home, Self-Care Instructions: Laceration (DC) Additional Instructions: Your wounds were repaired today in the emergency department. Keep dry and clean. You need to return to any emergency department, urgent care, or your PCPs office in 7-10 days for suture removal Apply bacitracin and or Neosporin daily Once sutures are removed apply anti scar cream like Mederma If area begins look infected, is red, there is drainage, streaking, or you have fever please return to the emergency department Prescriptions: No Action ofloxacin 0.3 % drops 2 drp ophthalmic (eye) QID 7 Days Qty: 10 0RF prednisone 20 mg tablet 40 mg PO DAILY 4 Days Qty: 8 0RF doxycycline monohydrate 100 mg capsule 100 mg PO BID Qty: 14 0RF ciprofloxacin HCl 0.3 % drops See Rx Instructions .ROUTE .COMPLEX Qty: 2.5 0RF Rx Instructions: put 1-2 drps in affected eye(s) every 2hr up to 8 times/day x2days; then 4 times/day x5days Referrals: Salinas Broussard MD [Primary Care Provider] - 1 week (7-10 days for suture removal)
== END 2022-11-15 20:01 | disposition home or self-care (01) ==
PROVIDERS: Emergency Provider Internal Medicine; PCP Family Medicine
DX: S61.412A Laceration without foreign body of left hand, initial encounter (principal); W26.0XXA Contact with knife, initial encounter; Y93.G1 Activity, food preparation and clean up; Y92.9 Unspecified place or not applicable; Y99.9 Unspecified external cause status; Z23 Encounter for immunization
CPT/HCPCS: 90471; 90715; 99283; 99284

== ENCOUNTER 2022-11-28 08:57 | Emergency (ER) | payer OTHER, SELFPAY ==
[2022-11-28 09:10] VITALS: BP 136/68; PULSE 69; RESP 18; O2SAT 100; BMI 18.3
--- NOTE | 2022-11-28 09:11 | ED.SKABFB ---
HPI - Skin/Abscess/Foreign Bdy General Chief complaint: Skin/Abscess/Foreign Body Stated complaint: suture removal Time Seen by Provider: 11/28/22 09:11 Source: patient Mode of arrival: ambulatory Limitations: no limitations History of Present Illness HPI narrative: This is a 72-year-old female presenting to the emergency department for suture removal, patient had sutures placed on the 15 of November, to her left hand, patient has 2 sutures. No medical complaints at this time. Denies fevers, chills, numbness, tingling. Related Data Previous Rx's Medication Instructions Recorded prednisone 20 mg tablet 40 mg PO DAILY 4 days #8 tabs 05/04/21 ciprofloxacin HCl 0.3 % eye drops See Rx Instructions ophthalmic 09/19/21 (eye) .COMPLEX conjuntivitis #2.5 mL doxycycline monohydrate 100 mg 100 mg PO BID #14 caps 09/19/21 capsule ofloxacin 0.3 % eye drops 2 drp ophthalmic (eye) QID 7 days 10/31/21 #10 mL Allergies Allergy/AdvReac Type Severity Reaction Status Date / Time amoxicillin [From AUGMENTIN] Allergy Severe HIVES, Verified 11/15/22 19:09 ITCHING clavulanic acid Allergy Severe HIVES, Verified 11/15/22 19:09 [From AUGMENTIN] ITCHING erythromycin base Allergy Intermediate HEART Verified 11/15/22 19:09 [Erythromycin Base] PALPATATIONS diphenhydramine Allergy Unknown HIVES Verified 11/15/22 19:09 [From BENADRYL] garlic Allergy Unknown UNKNOWN Verified 11/15/22 19:09 onion [Onion] Allergy Unknown UNKNOWN Verified 11/15/22 19:09 Review of Systems Review of Systems: Constitutional : No Fever, No Chills, Cardiovascular : No Chest Pain, No SOB Respiratory : No Dyspnea Gastrointestinal : No abdominal pain Musculoskeletal : No Joint Swelling Skin : No rash, positive skin laceration Neuro : No Weakness, No Numbness Psych : No SI/HI Yes all other systems are reviewed and are negative [facility] Past Medical History Attestation statement: The following information was validated with the patient. Source: old records reviewed and nursing notes reviewed Social History Social History Alcohol intake: never Physical Exam Vital Signs: Vital Signs: Last Vital Signs Pulse 69 11/28/22 09:10 Resp 18 11/28/22 09:10 BP 136/68 11/28/22 09:10 Pulse Ox 100 11/28/22 09:10 O2 Del Method Room Air 11/28/22 09:10 BMI result Body Mass Index 18.3 Vital signs stable Appearance: Alert.? Oriented X3.? No acute distress.? Head: Normocephalic, atraumatic, no step-offs or deformities Eyes: Pupils equal, round and reactive to light.? CVS: Normal heart rate and rhythm.? Pulses normal.? Respiratory: No respiratory distress.? Breath sounds normal.? Abdomen: Soft and nontender.? Skin: Skin warm and dry.? Normal skin color.? Normal skin turgor.?+ 1 cm laceration to the dorsal aspect between 1st and 2nd digit of hand with to intact sutures, healing well. No signs of infection, erythema, discharge, wound dehiscence. Extremities: No lower extremity edema.? No calf ttp. 5/5 strength to bilateral upper and lower extremities Neuro: Oriented X 3.? No motor deficit.? No sensory deficit. CN 2-12 intact Medical Decision Making Medical Decision Making MDM Narrative: 72-year-old female presents for suture removal, 2 sutures to the dorsal aspect of left hand. Physical exam significant for 1 cm laceration to the dorsal aspect between 1st and 2nd digit of hand with to intact sutures, healing well. No signs of infection, erythema, discharge, wound dehiscence. Likely normal wound healing. No signs of infection at this time. No signs of neurovascular compromise or threatened limb. Sutures successfully removed. Patient tolerated procedure well. Educated patient on diagnosis and treatment plan, answered all question, patient verbalizes understanding. At this time patient will be discharged home, advised to return with new or worsening symptoms. Educated on worrisome signs and symptoms and when to return. At this time I feel comfortable discharge home. Differential Diagnosis Differential Diagnoses: The differential diagnosis associated with the presentation includes Likely normal wound healing. No signs of infection at this time. No signs of neurovascular compromise or threatened limb. Admission/Observation Consideration of admission/observation: Escalation of care including admission/observation considered not indicated Core Measures AMI core measures followed: Yes Measure exclusions: not indicated Discharge Plan Discharge Clinical Impression: Encounter for removal of sutures Patient Disposition: Home, Self-Care Instructions: Stitches Removal (ED) Additional Instructions: Take your medications as prescribed. If you were prescribed antibiotics today, it is important that you take your medication to their entirety, do not skip any doses, do not finish them early. Follow-up with your primary care provider this week. Return to the emergency department with new or worsening symptoms. Such as fevers, chills, chest pain, shortness of breath, nausea, vomiting, dizziness, headache, vision changes, lethargy In case of emergency call 911 Prescriptions: No Action ofloxacin 0.3 % drops 2 drp ophthalmic (eye) QID 7 Days Qty: 10 0RF prednisone 20 mg tablet 40 mg PO DAILY 4 Days Qty: 8 0RF doxycycline monohydrate 100 mg capsule 100 mg PO BID Qty: 14 0RF ciprofloxacin HCl 0.3 % drops See Rx Instructions .ROUTE .COMPLEX Qty: 2.5 0RF Rx Instructions: put 1-2 drps in affected eye(s) every 2hr up to 8 times/day x2days; then 4 times/day x5days Referrals: Salinas Broussard MD [Primary Care Provider] - 2 days Stand Alone Forms: Work/School Release
== END 2022-11-28 09:22 | disposition home or self-care (01) ==
PROVIDERS: Emergency Provider Emergency Medicine; PCP Family Medicine
DX: Z48.02 Encounter for removal of sutures (principal)
CPT/HCPCS: 99282

== ENCOUNTER 2023-07-17 11:40 | Emergency (ER) | payer OTHER, SELFPAY ==
[2023-07-17 12:19] VITALS: BP 164/71; PULSE 80; RESP 19; TEMP 36.6; O2SAT 98; BMI 18.5
--- NOTE | 2023-07-17 12:20 | ED.WOUNDLAC ---
HPI - Wound/Laceration General Chief Complaint: Wound/Laceration Stated Complaint: skin Injury? Source: patient and family Mode of arrival: ambulatory Limitations: no limitations History of Present Illness HPI narrative: 72-year-old female presenting to the ER with complaints of an abrasion/wound to her right alvarez/ankle area that occurred approximately 1 month ago. She reports that she was in bed with her and he accidentally scraped her right anterior ankle with his toenail. She reports he has fungus. She reports she has been using [id number] bacitracin although no symptomatic relief and she feels like it is getting worse. Otherwise she denies any other symptoms complaints or concerns. She denies history of MRSA. Onset (ago): month(s) (1) Extremity Location: right: ankle Place: home Context: accidental Associated symptoms: pain Treatments prior to arrival: bandage Related Data Previous Rx's Medication Instructions Recorded prednisone 20 mg tablet 40 mg (2 x 20 mg) PO DAILY 4 days 05/04/21 #8 tabs ciprofloxacin HCl 0.3 % eye drops See Rx Instructions ophthalmic 09/19/21 (eye) .COMPLEX conjuntivitis #2.5 mL doxycycline monohydrate 100 mg 100 mg PO BID #14 caps 09/19/21 capsule ofloxacin 0.3 % eye drops 2 drp ophthalmic (eye) QID 7 days 10/31/21 #10 mL cephalexin 500 mg capsule 500 mg PO Q6H 7 days #28 caps 07/17/23 doxycycline monohydrate 100 mg 100 mg PO BID 7 days #14 tabs 07/17/23 tablet Allergies Allergy/AdvReac Type Severity Reaction Status Date / Time amoxicillin [From AUGMENTIN] Allergy Severe HIVES, Verified 07/17/23 12:19 ITCHING clavulanic acid Allergy Severe HIVES, Verified 07/17/23 12:19 [From AUGMENTIN] ITCHING erythromycin base Allergy Intermediate HEART Verified 07/17/23 12:19 [Erythromycin Base] PALPATATIONS diphenhydramine Allergy Unknown HIVES Verified 07/17/23 12:19 [From BENADRYL] garlic Allergy Unknown UNKNOWN Verified 07/17/23 12:19 onion [Onion] Allergy Unknown UNKNOWN Verified 07/17/23 12:19 Review of Systems Review of Systems: Constitutional : Denies history of same, Denies any other sites involved, Denies IV drug use, Denies history of MRSA, Denies swollen glands, Denies injury, Denies Fever, Denies Chills, + Sig Pain, Denies Systemic symptoms Cardiovascular : No Chest Pain, No SOB Respiratory : No Dyspnea Gastrointestinal : No abdominal pain Musculoskeletal : No Joint Swelling Skin : + wound/abrasdion, No abscess with surrounding erythema, No skin laceration, No Foreign bodies, No spreading rash, Denies bites, Denies discharge, Neuro : No Weakness, No Numbness/tingling Psych : No SI/HI/thoughts of self injury Yes all other systems are reviewed and are negative [facility] Past Medical History Attestation statement: The following information was validated with the patient. Source: old records reviewed, obtained from family and nursing notes reviewed Social History Social History Alcohol intake: never Physical Exam Vital Signs: Vital Signs: vital signs have been reviewed as normal and appeared to be correct. Blood pressure normal Heart rate normal. Respiration rate normal. Temperature normal. Oxygen saturation normal. Appearance: Alert. Oriented X3. No acute distress. Head: Normal external exam. Normocephalic. Atraumatic. Eyes: PERRLA. EOMI. Conjunctiva and sclera normal. Eyelids normal. ENT: Pharynx normal. Uvula midline. Moist mucous membranes. Neck: Normal inspection. Neck supple. FROM. CVS: Normal heart rate and rhythm. Respiratory: No respiratory distress. Painless inspiration. Skin: Skin warm and dry. Normal skin color. Normal skin turgor. To right alvarez patient has superficial abrasion. No foreign bodies, surrounding erythema, fluctuance or signs of infection noted. No additional rashes/lesions/lacerations noted. Extremities: No lower extremity edema. Extremities exhibit normal range of motion. Extremities nontender. Neuro: Oriented X 3. No motor deficit. No sensory deficit. Reflexes normal. Normal steady gait. No focal neuro deficits noted. Vascular: + radial pulses/+ 2 distal pedal pulses/+2 dorsalis pedis b/l. Normal cap refill. No cyanosis noted to upper extremity nails and lower extremity toes nails. Course Course Course Narrative: IMP/Plan: abrasion possibly infection. Not sepsis/ infectious etiology. Not c/w abscess, osteomyelitis, septic joint, SSSS/ TEN/ Eryth multiforme/ [place]. Patient will be started on oral antibiotics along with referral to the [facility]ound [facility] and to return if any new or worsening symptoms. Patient understands agrees with this plan. Medical Decision Making Medical Decision Making MDM Narrative: see course Differential Diagnosis Differential Diagnoses: The differential diagnosis associated with the presentation includes see course Independent Historian Clinical information obtained from an independent historian. History obtained from or confirmed by: Spouse External Record Review External record reviewed: Inpatient record, Office record, Outpatient record, Prior outpatient labs, Prior outpatient radiology, Primary care record and Outside ED record All prior labs/imaging/EKGs and knows that are accessible in our system reviewed by myself. Prescription Management I considered prescription management with: Antibiotic Social Determinants Patient?s care significantly limited by Social Determinants of Health including: Other Social Determinant of Health Discharge Plan Discharge Clinical Impression: Open wound of right ankle Patient Disposition: Home, Self-Care Instructions: Wound Infection (DC) Prescriptions: New doxycycline monohydrate 100 mg tablet 100 mg PO BID 7 Days Qty: 14 0RF cephalexin 500 mg capsule 500 mg PO Q6H 7 Days Qty: 28 0RF No Action ofloxacin 0.3 % drops 2 drp ophthalmic (eye) QID 7 Days Qty: 10 0RF prednisone 20 mg tablet 40 mg PO DAILY 4 Days Qty: 8 0RF doxycycline monohydrate 100 mg capsule 100 mg PO BID Qty: 14 0RF ciprofloxacin HCl 0.3 % drops See Rx Instructions .ROUTE .COMPLEX Qty: 2.5 0RF Rx Instructions: put 1-2 drps in affected eye(s) every 2hr up to 8 times/day x2days; then 4 times/day x5days Referrals: [facility] [place] Group] Print Language: Iranian
== END 2023-07-17 12:30 | disposition home or self-care (01) ==
LOC: HO.ED 12:29
PROVIDERS: Emergency Provider Emergency Medicine; PCP Family Medicine
DX: S91.001A Unspecified open wound, right ankle, initial encounter (principal); W50.4XXA Accidental scratch by another person, initial encounter; Y93.9 Activity, unspecified; Y92.003 Bedroom of unspecified non-institutional (private) residence as the place of occurrence of the external cause; Y99.9 Unspecified external cause status
CPT/HCPCS: 99282; 99283

== ENCOUNTER 2023-07-18 09:17 | Outpatient (RCR) | payer OTHER, SELFPAY | END 2023-08-21 12:13 | disposition home or self-care (01) | LOC: HO.WCC 09:17 | PROVIDERS: PCP Family Medicine; Visit Provider Physician Assistant | DX: S81.812A Laceration without foreign body, left lower leg, initial encounter (principal); Z87.891 Personal history of nicotine dependence | CPT/HCPCS: 99212 ==

== ENCOUNTER 2023-12-31 12:11 | Emergency (ER) | payer OTHER, SELFPAY ==
--- NOTE | ~2023-12-31 | XR_ITS ---
EXAMINATION: XR CHEST CLINICAL INFORMATION: Productive cough, Covid positive COMPARISON: Chest radiograph 09/19/2021 TECHNIQUE: 2 views of the chest were obtained. FINDINGS: The lungs are adequately expanded. No focal consolidation. No pleural effusions or pneumothorax. The cardiomediastinal silhouette is within normal limits. No acute osseous abnormality. XR/XR chest 2V IMPRESSION: No acute pulmonary disease.
--- NOTE | 2023-12-31 12:14 | ED.URI ---
HPI - URI/Sore Throat General Chief Complaint: Upper Respiratory Symptoms Stated Complaint: +covid, body aches, fever Time Seen by Provider: 12/31/23 12:19 Source: patient Mode of arrival: ambulatory Limitations: no limitations History of Present Illness ED Provider: Brianda GOMEZ Narrative: This is a 73 year old feamle presenign w/ fatigue, malaise, myalgias, sore throat, ear pain, productive cough, hedaches X 2 days. This am patient had a positive covid test at home. She reports she has not been eating and drinking much as she is not feeling great. Denies CP, sob, nausea, vomiting, abd pain, n/v/d, vision changes, dizziness, weakness. Related Data Previous Rx's ?Medication ?Instructions ?Recorded prednisone 20 mg tablet 40 mg (2 x 20 mg) PO DAILY 4 days 05/04/21 #8 tabs ciprofloxacin HCl 0.3 % eye drops See Rx Instructions ophthalmic 09/19/21 (eye) .COMPLEX conjuntivitis #2.5 mL doxycycline monohydrate 100 mg 100 mg PO BID #14 caps 09/19/21 capsule ofloxacin 0.3 % eye drops 2 drp ophthalmic (eye) QID 7 days 10/31/21 #10 mL cephalexin 500 mg capsule 500 mg PO Q6H 7 days #28 caps 07/17/23 doxycycline monohydrate 100 mg 100 mg PO BID 7 days #14 tabs 07/17/23 tablet albuterol sulfate 90 mcg/actuation 2 inh inhalation Q4-6H PRN 12/31/23 breath activated powder inhaler shortness of breath or wheezing #1 ea Allergies Allergy/AdvReac Type Severity Reaction Status Date / Time amoxicillin [From AUGMENTIN] Allergy Severe HIVES, Verified 12/31/23 12:18 ITCHING clavulanic acid Allergy Severe HIVES, Verified 12/31/23 12:18 [From AUGMENTIN] ITCHING erythromycin base Allergy Intermediate HEART Verified 12/31/23 12:18 [Erythromycin Base] PALPATATIONS diphenhydramine Allergy Unknown HIVES Verified 12/31/23 12:18 [From BENADRYL] garlic Allergy Unknown UNKNOWN Verified 12/31/23 12:18 onion [Onion] Allergy Unknown UNKNOWN Verified 12/31/23 12:18 [facility] Social History Social History Alcohol intake: never Advance Directives: No Advance Directives Information Provided: Yes Physical Exam Vital Signs: Vital Signs: Last Vital Signs Temp 99.0 F 12/31/23 14:56 Pulse 82 12/31/23 14:56 Resp 18 12/31/23 14:56 BP 109/58 L 12/31/23 14:56 Pulse Ox 99 12/31/23 14:56 O2 Del Method Room Air 12/31/23 14:56 BMI result Body Mass Index 18.5 Course Course Course Narrative: This is a Rapid Medical Exam performed in triage by Doris Avendano PA-C. Full HPI, ROS and PE to be performed by primary ED provider. 73 yo F w/PMHx COVID+ (home test x today) presenting to the ED c/o fever (101.9), sore throat, ear pain, productive cough, fatigue x yesterday. denies CP/SOB PE: hypotensive, febrile 100.8, talking in complete sentences, nontoxic appearing Plan: Labs, Viral testing, Rapid strep, CXR Reevaluation(s) Reevaluation #1: Patient noted to be hypotensive, febrile and tachy i suspect this is from covid-19/ viral illness. Unlikely from sepsis or bacterial infection. Time: 12:32 Reevaluation #2: xray unremarkable. Noted to have leukopenia and thrombocytopenia likley secondary to viral illness. Slight bump in transaminiases probable from viral illness. Trop -, non ischemic EKG. These are viral sx leading to presentation. plan dc w/ supportive measures. Patient verabalizes understanding of this She should dicsuss inititation of rainer w/ pcp Time: 15:05 Medications Administered Discontinued Medications Generic Name Dose Route Start Last Admin Trade Name Freq PRN Reason Stop Dose Admin Sodium Chloride 1,000 mls @ 999 mls/hr 12/31/23 12:30 12/31/23 14:53 Ns IV 12/31/23 13:30 Infused .Q1H1M DAREN Infusion Sodium Chloride 1,000 mls @ 999 mls/hr 12/31/23 12:45 12/31/23 14:53 Ns IV 12/31/23 13:45 Infused .Q1H1M DAREN Infusion Ibuprofen 600 mg 12/31/23 12:20 12/31/23 12:43 Ibuprofen 600 Mg Tablet PO 12/31/23 12:21 600 mg ONCE ONE Administration Medical Decision Making Medical Decision Making [facility] Narrative: 1232 73 year old female presents w/ sore throat, ear pain, productive cough, fatigue, fever, headache X 2 days. tested positive for COVID today PE febrile, tachy, hypotensive. This is likely covid 19. Unlikley pna, pe, acs, ards. Concerns for dehydration and possible electrolyte abnormaliteis. No sings of meningitis, encephalitis, ich, stroke plan- labs, viral test, imaging, ua Differential Diagnosis Differential Diagnoses: The differential diagnosis associated with the presentation includes This is likely covid 19. Unlikley pna, pe, acs, ards. Concerns for dehydration and possible electrolyte abnormaliteis. No sings of meningitis, encephalitis, ich, stroke Admission/Observation Consideration of admission/observation: Escalation of care including admission/observation considered possible Lab Data [facility] Lab Attestation statement: I reviewed the patient's lab results. 12/31/23 12:40 12/31/23 12:40 Labs: Lab Results 12/31/23 Range/Units 12:40 WBC 4.2 L (4.8-10.8) X10*3/uL RBC 3.65 L (4.20-5.50) X10*6/uL Hgb 12.1 (12.0-16.0) g/dl Hct 35.9 L (37.0-47.0) % MCV 98.4 H (80.0-98.0) fL MCH 33.2 H (27.0-33.0) pg MCHC 33.7 (31.0-35.0) g/dl RDW 13.2 (11.0-16.0) % Plt Count 144 L (160-400) X10*3/uL MPV 11.1 (9.4-12.3) fL Immature Gran % (Auto) 0.5 H (0.0-0.4) % Neut % (Auto) 59.9 (45-73) % Lymph % (Auto) 19.1 L (20-40) % [place] % (Auto) 19.8 H (2-11) % Eos % (Auto) 0.2 (0-4) % Baso % (Auto) 0.5 (0-2) % Lymph # (Auto) 0.8 L (1.2-4.9) X10*3/uL [place] # (Auto) 0.8 (0.1-1.2) X10*3/uL Eos # (Auto) 0.0 (0.0-0.4) X10*3/uL Baso # (Auto) 0.0 (0.0-0.2) X10*3/uL Abs Immat Gran (auto) 0.02 (0.00-0.03) X10*3/uL Absolute Neuts (auto) 2.5 (2.0-8.3) x10*3/uL Absolute Nucleated RBC 0.000 (0.0-0.012) X10*3/uL Nucleated RBC % (auto) 0.0 (0.0-0.2) /100WBC Sodium 138 (135-145) mmol/L Potassium 4.5 (3.3-5.1) mmol/L Chloride 103 (96-108) mmol/L Carbon Dioxide 21 L (22-29) mmol/L Anion Gap 19 (12-20) BUN 13 (9-16) mg/dL Creatinine 1.00 (0.5-1.4) mg/dL Estim Creat Clear Calc 35.3 Estimated GFR 54 Random Glucose 105 (60-115) mg/dL Calcium 9.7 (8.4-10.2) mg/dL Magnesium 1.7 (1.6-2.6) mg/dL Total Bilirubin 0.5 (0.0-1.0) mg/dL Direct Bilirubin 0.1 (0.0-0.5) mg/dL AST 40 H (5-31) U/L ALT 32 H (0-31) U/L Alkaline Phosphatase 87 (39-117) U/L Troponin I High Sens < 2.7 (<3.5-17.0) ng/L Total Protein 7.4 (6.5-8.0) g/dL Albumin 4.4 (3.5-5.0) g/dL Influenza Type A (PCR) NEGATIVE (Negative) Influenza Type B (PCR) NEGATIVE (Negative) RSV RNA Qual (PCR) NEGATIVE (Negative) SARS-CoV-2 RNA (RT-PCR) POSITIVE A (Negative) S. pyogenes GrpA INDRA Negative (Negative) Independent Interpretation I performed an independent interpretation of an: EKG and Plain X-Ray Radiology Impression Discussion of test interpretation with radiology: I have reviewed the radiologist's reading. Discharge Plan Discharge Clinical Impression: COVID-19 Patient Disposition: Home, Self-Care Instructions: COVID-19 (Coronavirus Disease 2019) (ED) Additional Instructions: Take your medications as prescribed. If you were prescribed antibiotics today, it is important that you take your medication to their entirety, do not skip any doses, do not finish them early. Today you tested positive for COVID-19. You can take ibuprofen every 6 hours tylenol every 4 hours as needed for fevers or body aches ( do not exceed maximum daily dose as recommended on the package). Quarantine for 5 days and ensure you wear a mask. After 5 days you should wear a mask for 5 days after that. Practice social distancing and good hand hygiene. Drink plenty of fluids. Follow-up with your primary care provider this week. Return to the emergency department with new or worsening symptoms. In case of emergency call 911 You can purchase a pulse oximeter from your local pharmacy or grocery store, and monitor your oxygen saturation if it goes below 94% you should return to the emergency department for further evaluation. If interested discuss initiation of paxlovid with PCP or pharmacist XR/XR chest 2V IMPRESSION: No acute pulmonary disease. Prescriptions: New albuterol sulfate 90 mcg/actuation aerosol powdr breath activated 2 inh inhalation Q4-6H PRN (Reason: shortness of breath or wheezing) Qty: 1 0RF No Action ofloxacin 0.3 % drops 2 drp ophthalmic (eye) QID 7 Days Qty: 10 0RF prednisone 20 mg tablet 40 mg PO DAILY 4 Days Qty: 8 0RF doxycycline monohydrate 100 mg capsule 100 mg PO BID Qty: 14 0RF ciprofloxacin HCl 0.3 % drops See Rx Instructions .ROUTE .COMPLEX Qty: 2.5 0RF Rx Instructions: put 1-2 drps in affected eye(s) every 2hr up to 8 times/day x2days; then 4 times/day x5days doxycycline monohydrate 100 mg tablet 100 mg PO BID 7 Days Qty: 14 0RF cephalexin 500 mg capsule 500 mg PO Q6H 7 Days Qty: 28 0RF Referrals: Salinas Broussard MD [Primary Care Provider] - 2 days Interventions: ED Discharge Assessment Last Done: 12/31/23 14:56 Discharge Date/Time: 12/31/23 15:02 Print Language: [place] Islander
[2023-12-31 12:15] VITALS: BP 115/73; PULSE 92; RESP 18; TEMP 38.2; O2SAT 99; BMI 18.5
--- NOTE | 2023-12-31 12:19 | ECG_ITS ---
Test Reason : HYPOTENSIVE Blood Pressure : / mmHG Vent. Rate : 097 BPM Atrial Rate : 097 BPM P-R Int : 188 ms QRS Dur : 074 ms QT Int : 362 ms P-R-T Axes : 054 025 075 degrees QTc Int : 459 ms Normal sinus rhythm Possible Left atrial enlargement Borderline ECG When compared with ECG of 25-MAR-2011 14:18, No significant change was found Referred By: Doris Avendano Electronically Signed By:WILEY PEREZ
[2023-12-31 12:32] VITALS: BP 115/73
--- NOTE | 2023-12-31 12:35 | ECG_ITS ---
Test Reason : hypotension Blood Pressure : / mmHG Vent. Rate : 085 BPM Atrial Rate : 085 BPM P-R Int : 190 ms QRS Dur : 072 ms QT Int : 370 ms P-R-T Axes : 045 005 057 degrees QTc Int : 440 ms Normal sinus rhythm Normal ECG When compared with ECG of 31-DEC-2023 12:20, No significant change was found Referred By: Magdiel Lamar Electronically Signed By:WILEY PEREZ
[2023-12-31] MEDS: Ibuprofen 600 MG TABLET PO (12:43)
[2023-12-31 12:44] LABS: MANUAL DIFF FLAG NO
[2023-12-31] MEDS: 0.9 % Sodium Chloride 1,000 ML 999 ML IV ×2 (12:45)
[2023-12-31 12:49] LABS: Basophils Percent Auto 0.5 % (0-2); Eosinophils Percent Auto 0.2 % (0-4); Hematocrit 35.9 % (37.0-47.0); Hemoglobin 12.1 g/dl (12.0-16.0); Imm Gran Abs Auto 0.02 X10*3/uL (0.00-0.03); Imm Gran Pct Auto 0.5 % (0.0-0.4); Lymphocytes Absolute Auto 0.8 X10*3/uL (1.2-4.9); Lymphocytes Percent Auto 19.1 % (20-40); Mean Corpuscular HGB Conc 33.7 g/dl (31.0-35.0); Mean Corpuscular Hemoglobin 33.2 pg (27.0-33.0); Mean Corpuscular Volume 98.4 fL (80.0-98.0); Mean Platelet Volume 11.1 fL (9.4-12.3); Monocytes Absolute Auto 0.8 X10*3/uL (0.1-1.2); Monocytes Percent Auto 19.8 % (2-11); Neutrophils Absolute Auto 2.5 x10*3/uL (2.0-8.3); Neutrophils Percent Auto 59.9 % (45-73); Platelet Count 144 X10*3/uL (160-400); Red Blood Count 3.65 X10*6/uL (4.20-5.50); Red Cell Distribution Width 13.2 % (11.0-16.0); White Blood Count 4.2 X10*3/uL (4.8-10.8)
--- NOTE | 2023-12-31 12:52 | PC.NURSE ---
patient arrives through external triage, patient states she started feeling short of breath and had a sore throat last night, went and got her a COVID test at home and she tested positive this morning, patient complaining of cough and shortness of breath, low grade fever in triage, patinet O2 sat WNL patinet medicated per JUL, 20g PIV placed in left wrist. EKG completed by tech
[2023-12-31 13:01] LABS: Alanine Aminotransferase 32 U/L (0-31); Albumin Level 4.4 g/dL (3.5-5.0); Alkaline Phosphatase 87 U/L (39-117); Anion Gap 19 (12-20); Aspartate Amino Transferase 40 U/L (5-31); Bilirubin Direct 0.1 mg/dL (0.0-0.5); Bilirubin Total 0.5 mg/dL (0.0-1.0); Blood Urea Nitrogen 13 mg/dL (9-16); Calcium 9.7 mg/dL (8.4-10.2); Carbon Dioxide 21 mmol/L (22-29); Chloride 103 mmol/L (96-108); Creatinine Clr Calc Pharmacy 35.3; Estimated Glomerular Filt Rate 54; Glucose Random 105 mg/dL (60-115); Magnesium 1.7 mg/dL (1.6-2.6); Potassium 4.5 mmol/L (3.3-5.1); Sodium 138 mmol/L (135-145); Total Protein 7.4 g/dL (6.5-8.0)
[2023-12-31 13:04] LABS: IDNOW Serial# 08D9AD1C; Strep A Nucleic Acid Negative (Negative)
[2023-12-31 13:07] LABS: Troponin-I High Sensitivity < 2.7 ng/L (<3.5-17.0)
[2023-12-31 13:30] LABS: Influenza A PCR NEGATIVE (Negative); Influenza B PCR NEGATIVE (Negative); Resp Syncy Virus RNA Qual PCR NEGATIVE (Negative); SARS COV2 PCR INHOUSE POSITIVE (Negative)
[2023-12-31 14:56] VITALS: BP 109/58; PULSE 82; RESP 18; TEMP 37.2; O2SAT 99
--- OUTSIDE RECORDS SUMMARY | 2024-01-03 07:24 | XMS_ITS | Continuity of Care Document ---
Author Organization [facility] Address [address] [facility], [address] [place] [address]- Care Team Providers Care Testing Director Name Role Phone Salinas Broussard MD Primary Care Physician Encounter 09/11/23 - 09/18/23 [facility] [address], [address] [place] [address]- Attending Physician: Salinas Broussard MD Admitting Physician: Salinas Broussard MD Referring Physician: Salinas Broussard MD Allergies, Adverse Reactions, Alerts Substance Reaction Severity Status erythromycin Palpation Active Other Environmental Allergy seasonal all ergies-sneezing and congestion Active amoxicillin-clavulanate full body rash, nausea and vom itting Active garlic SEVERE DIARRHEA Active Immunizations Given and Recorded Vaccine Date Status Refusal Reason influenza virus vaccine, inactivated 02/11/22 Yo rded influenza virus vaccine, inactivated 01/27/21 Yo rded influenza virus vaccine, inactivated 01/24/20 Yo rded influenza virus vaccine, inactivated 02/01/19 Yo rded influenza virus vaccine, inactivated 02/09/18 Yo rded influenza virus vaccine, inactivated 03/20/17 Yo rded influenza virus vaccine, inactivated 1 02/12/17 Re corded influenza virus vaccine, inactivated 01/12/16 Yo rded influenza virus vaccine, inactivated 01/11/16 Yo rded [id number] 12y+ bivalent booster vax 02/04/22 Recorded SARS-CoV-2 mRNA (bjleawi-lcrx-zkdiu) vax 08/13/21 Recorded pneumococcal 23-valent vaccine 05/28/21 Recorded SARS-CoV-2 (COVID-19) mRNA BNT-162b2 vac 02/23/21 Recorded SARS-CoV-2 (COVID-19) mRNA BNT-162b2 vac 08/19/20 Given SARS-CoV-2 (COVID-19) mRNA BNT-162b2 vac 07/29/20 Given pneumococcal 13-valent vaccine 2 08/27/18 Given pneumococcal 13-valent vaccine 06/29/16 Given tetanus/diphtheria/pertussis, acel(Tdap) 06/29/16 Given 1Location History: [facility] 2Result Comment: 3126-2439-67 Problem List Condition Confirmation Course Effective Dates Status H ealth Status Informant Acute bronchitis Confirmed Active Acute conjunctivitis Confirmed Active Allergic rhinitis Confirmed Active Edema Confirmed Active Headache 1 Confirmed Active Hemorrhoids Confirmed Active Left inguinal pain Confirmed Active Vestibular migraine Confirmed Active Pharyngitis Confirmed Active Vertigo 2, 3 Confirmed Active Vitamin D deficiency Confirmed Active 1Tried pt for, seen in ED for 04/[address] Cervical ROM found to elicit LOGAN during PT. She was referred to neurology 2Saw Dr Muñiz. In [place] 3tried PT for 04/15/16 Results Radiology Reports * Exam Date Time Procedure Performing Provider Status 09/11/23 4:10 PM MM Digital Mammo Screening Negrita Galloway sara; Auth (Verified) Notes: (MM Digital Mammo Screening) Reason For Exam: screening RESULT: MM Digital Mammo Screening PROCEDURE: MM Digital Mammo Screening INDICATION: Screening for breast cancer. No known palpable abnormalities. COMPARISON: [facility] dating back to 08/25/2016. TECHNIQUE:: Full-field digital CC and MLO 3D tomosynthesis images of both breasts were acquired with implants displaced. In addition, 2-D MLO and CC views were obtained. Computer-aided detection (CAD) was utilized in the interpretation of this study DENSITY: There are scattered areas of fibroglandular density. FINDINGS: No suspicious masses, suspicious calcifications, or areas of architectural distortion areseen to suggest malignancy. There are bilateral retropectoral implants with no evidence of complication. IMPRESSION: No mammographic evidence of malignancy. RECOMMENDATION: Annual mammographic screening BI-RADS: 2 (Benign) Lay letter mailed to patient WSN: [id number] Ordering Physician: Salinas Broussard Dictated By: Tami You MD, I Dictated Date/Time: 09/11/23 5:01 pm Reviewed By: Tami You MD, I Signed By: Tami You MD, I Signed Date/Time: 09/11/23 5:01 pm Transcribed By: TRACIE Fans Clerk Date/Time: 09/11/23 4:59 pm Birads: Social History Social History Type Response Smoking Status Former smoker; Tobac co use times per day: Smoke less the a pack a day; Started at age: 17; Stopped at age: 30; entered on: 06/29/16 Sex Patient Care team information Care Team Personnel Name: Bobo THOMAS, Salinas Jaffe Position: [facility] Physician - Primary Care Member Role: PCP Address: Address: [address] [place] [address]- Care Team Related Persons Name: NEIL RIVERA Address: home [address] [place] [address] Name: IRIS PIKE Address: home [address] [place] [address]
--- OUTSIDE RECORDS SUMMARY | 2024-01-03 07:24 | XMS_ITS | Continuity of Care Document ---
Author Organization [facility] Huber Sriram lt Address [address] [place] [address]- Care Team Providers Care Inspector Aligning Name Role Phone Salinas Broussard MD Primary Care Physician Encounter [facility] Date(s): 07/10/23 - 08/09/23 [facility] Huber Adult [address] [place] [address]- Attending Physician: Admtr, [id number] Admitting Physician: Admtr, Hanna Referring Physician: Admtr, [id number] Allergies, Adverse Reactions, Alerts Substance Reaction Severity Status erythromycin Palpation Active amoxicillin-clavulanate full body rash, nausea and vom itting Active garlic SEVERE DIARRHEA Active Other Environmental Allergy seasonal all ergies-sneezing and congestion Active Immunizations Given and Recorded Vaccine Date [...] influenza virus vaccine, inactivated 01/11/16 Yo rded [id number] 12y+ bivalent booster vax 02/04/22 Recorded SARS-CoV-2 mRNA (rbaiulv-diqy-mlvxt) vax 08/13/21 Recorded pneumococcal 23-valent vaccine 05/28/21 Recorded SARS-CoV-2 (COVID-19) mRNA BNT-162b2 vac 02/23/21 Recorded SARS-CoV-2 (COVID-19) mRNA BNT-162b2 vac 08/19/20 Given SARS-CoV-2 (COVID-19) mRNA BNT-162b2 vac 07/29/20 Given pneumococcal 13-valent vaccine 2 08/27/18 Given pneumococcal 13-valent vaccine 06/29/16 Given tetanus/diphtheria/pertussis, acel(Tdap) 06/29/16 Given 1Location History: [facility] 2Result Comment: [id number] Problem List Condition Confirmation Course Effective Dates [...] referred to neurology 2Saw Dr Muñiz. In [place] 3tried PT for 04/15/16 Social History Social History Type Response Smoking Status Former smoker; Tobac co use times per day: Smoke less the a pack a day; Started at age: 17; Stopped at age: 30; entered on: 06/29/16 Sex MG Breast Views * Event Display: MM Mammogram, Non- Authored Date: Patient Care team information Care Team Personnel Name: Bobo THOMAS, Salinas Jaffe Position: [facility] Physician - Primary Care Member Role: PCP Address: Address: [address] [place] [address]- Care Team Related Persons Name: NEIL RIVERA Address: home [address] [place] [address] Name: IRIS PIKE Address: home [address] [place] [address]
--- OUTSIDE RECORDS SUMMARY | 2024-01-03 07:24 | XMS_ITS | Continuity of Care Document ---
Author Organization [facility] Huber Sriram lt Address [address] [place] [address]- Care Team Providers Care Riding Silks Custodian Name Role Phone Salinas Broussard MD Primary Care Physician [phone] Encounter [facility] Date(s): 07/10/23 - 07/17/23 [facility]ggley Adult [address] [place] [address]- Encounter Diagnosis Osteopenia of hip(Discharge Diagnosis) - 07/10/23 Well adult exam(Discharge Diagnosis) - 07/10/23 Attending Physician: Salinas Broussard MD Allergies, Adverse [...] influenza virus vaccine, inactivated 01/11/16 Yo rded [id number] 12y+ bivalent booster vax 02/04/22 Recorded SARS-CoV-2 mRNA (kgpxaot-wqyh-gtack) vax 08/13/21 Recorded pneumococcal 23-valent vaccine 05/28/21 Recorded SARS-CoV-2 (COVID-19) mRNA BNT-162b2 vac 02/23/21 Recorded SARS-CoV-2 (COVID-19) mRNA BNT-162b2 vac 08/19/20 Given SARS-CoV-2 (COVID-19) mRNA BNT-162b2 vac 07/29/20 Given pneumococcal 13-valent vaccine 2 08/27/18 Given pneumococcal 13-valent vaccine 06/29/16 Given tetanus/diphtheria/pertussis, acel(Tdap) 06/29/16 Given 1Location History: ROBB 2Result Comment: Medications No Known Medications Problem List Condition Confirmation Course Effective Dates [...] referred to neurology 2Saw Dr Muñiz. In [place] 3tried PT for 04/15/16 Diagnosis Diagnosis Type Effective Dates Health Status Clinical Service Informant Osteopenia of hip Discharge Diagnosis 07/10/23 Well adult exam Discharge Diagnosis 07/10/23 Vital Signs Most recent to oldest [Reference Range]: 1 Height 156.5 cm (07/10/23 3:13 PM) Weight 47.5 kg (07/10/23 3:13 PM) Oxygen Saturation [94-100 %] 100 % (07/10/23 3:13 PM) Pulse Rate [55-90 bpm] 89 bpm (07/10/23 3:13 PM) Body Mass Index [18.5-24.99 kg/m2] 19.39 kg/m2 (07/10/23 3:13 PM) Blood Pressure [90-138/55-84 mm Hg] 117/ 72mm Hg (07/10/23 3:13 PM) Mode of Delivery (Oxygen) Room air (07/10/23 3:13 PM) Blood pressure sites Arm, left (07/10/23 3:13 PM) Weight Obtained Via Standing scale (07/10/23 3:13 PM) Social History Social History Type Response Smoking Status Former smoker; Tobac co use times per day: Smoke less the a pack a day; Started at age: 17; Stopped at age: 30; entered on: 06/29/16 Sex Patient Care team information Care Team Personnel Name: Bboo THOMAS, Salinas Jaffe Position: [facility] Physician - Primary Care Member Role: PCP Address: Address: [address] [place] [address]- Care Team Related Persons Name: NEIL RIVERA Address: home [address] [place] [address] Name: IRIS PIKE Address: [address] [place] [address]
--- OUTSIDE RECORDS SUMMARY | 2024-01-03 07:24 | XMS_ITS | Continuity of Care Document ---
Author Organization [facility] Sriram lt Address [address] [place] [address]- Care Team Providers Care Medical Billing Coordinator Name Role Phone Bobo THOMAS, Salinas Jaffe Primary Care Physician [phone] Encounter [facility] Date(s): 02/24/22 - 03/26/22 [facility] [place] Adult [address] [place] [address]- Allergies, Adverse Reactions, Alerts Substance Reaction Severity Status erythromycin Palpation Active garlic SEVERE DIARRHEA Active Other Environmental Allergy seasonal all ergies-sneezing and congestion Active amoxicillin-clavulanate full body rash, nausea and vom itting Active Immunizations Given and Recorded Vaccine Date [...] influenza virus vaccine, inactivated 01/11/16 Yo rded [id number] 12y+ bivalent booster vax 02/04/22 Recorded SARS-CoV-2 mRNA (sdvkwmb-ulot-aiten) vax 08/13/21 Recorded pneumococcal 23-valent vaccine 05/28/21 Recorded SARS-CoV-2 (COVID-19) mRNA BNT-162b2 vac 02/23/21 Recorded SARS-CoV-2 (COVID-19) mRNA BNT-162b2 vac 08/19/20 Given SARS-CoV-2 (COVID-19) mRNA BNT-162b2 vac 07/29/20 Given pneumococcal 13-valent vaccine 2 08/27/18 Given pneumococcal 13-valent vaccine 06/29/16 Given tetanus/diphtheria/pertussis, acel(Tdap) 06/29/16 Given 1Location History: [facility] 2Result Comment: [id number] Medications Multivitamin 1 tablet, By Mouth, Daily in AM, 0 Refills, Maintenance, 11/19/21 13:21:00 EDT, Partial fill upon patient request if the prescription is for a schedule II opioid drug. Start Date: 11/19/21 Status: Ordered Problem List Condition Confirmation Course Effective Dates [...] referred to neurology 2Saw Dr Muñiz. In [place] 3tried PT for 04/15/16 Social History Social History Type Response Smoking Status Former smoker; Tobac co use times per day: Smoke less the a pack a day; Started at age: 17; Stopped at age: 30; entered on: 06/29/16 Sex Patient Care team information Care Team Personnel Name: Salinas Broussard MD Position: [facility] Primary Care Physician Member Role: PCP Address: Address: [address] [place] [address]- Care Team Related Persons Name: NEIL RIVERA Address: home [address] [place] [address] Name: IRIS PIKE Address: [address] [place] [address]
--- OUTSIDE RECORDS SUMMARY | 2024-01-03 07:24 | XMS_ITS | Continuity of Care Document ---
Author Organization [facility] Huber Srriam lt Address [address] [place] [address]- Care Team Providers Care Boathouse Keeper Name Role Phone Salinas Broussard MD Primary Care Physician [phone] Encounter [facility] Date(s): 07/08/22 - 07/15/22 [facility] Davidson Huber Adult [address] [place] [address]- Attending Physician: Salinas Broussard MD Allergies, Adverse [...] influenza virus vaccine, inactivated 01/11/16 Yo rded [id number] 12y+ bivalent booster vax 02/04/22 Recorded SARS-CoV-2 mRNA (kkjqmnl-trno-xqqln) vax 08/13/21 Recorded pneumococcal 23-valent vaccine 05/28/21 Recorded SARS-CoV-2 (COVID-19) mRNA BNT-162b2 vac 02/23/21 Recorded SARS-CoV-2 (COVID-19) mRNA BNT-162b2 vac 08/19/20 Given SARS-CoV-2 (COVID-19) mRNA BNT-162b2 vac 07/29/20 Given pneumococcal 13-valent vaccine 2 08/27/18 Given pneumococcal 13-valent vaccine 06/29/16 Given tetanus/diphtheria/pertussis, acel(Tdap) 06/29/16 Given 1Location History: [facility] 2Result Comment: [id number] Medications Multivitamin 1 tablet, By Mouth, Daily [...] referred to neurology 2Saw Dr Muñiz. In [place] 3tried PT for 04/15/16 Vital Signs Most recent to oldest [Reference Range]: 1 Height 156.8 cm (07/08/22 1:30 PM) Weight 46.8 kg (07/08/22 1:30 PM) Oxygen Saturation [94-100 %] 100 % (07/08/22 1:30 PM) Pulse Rate [55-90 bpm] 66 bpm (07/08/22 1:30 PM) Body Mass Index [18.5-24.99 kg/m2] 19.04 kg/m2 (07/08/22 1:30 PM) Blood Pressure [90-138/55-84 mm Hg] 119/ 72mm Hg (07/08/22 1:30 PM) Mode of Delivery (Oxygen) Room air (07/08/22 1:30 PM) Blood pressure sites Arm, left (07/08/22 1:30 PM) Weight Obtained Via Standing scale (07/08/22 1:30 PM) Social History Social History Type Response Smoking Status Former smoker; Tobac co use times per day: Smoke less the a pack a day; Started at age: 17; Stopped at age: 30; entered on: 06/29/16 Sex Patient Care team information Care Team Personnel Name: Bobo THOMAS, Salinas Jaffe Position: [facility] Primary Care Physician Member Role: PCP Address: Address: [address] [place] [address]- Care Team Related Persons Name: NEIL RIVERA Address: home [address] [place] [address] Name: IRIS PIKE Address: [address] [place] [address]
--- OUTSIDE RECORDS SUMMARY | 2024-01-03 07:24 | XMS_ITS | Continuity of Care Document ---
Author Organization [facility] Davidson Huber Sriram lt Address [address] [place] [address]- Care Team Providers Care Capacitor Repairer Name Role Phone Salinas Broussard MD Primary Care Physician [phone] Encounter [facility] Date(s): 03/10/22 - 03/17/22 [facility] Davidson Huber Adult [address] [place] [address]- Attending Physician: Salinas Broussard MD Allergies, Adverse [...] influenza virus vaccine, inactivated 01/11/16 Yo rded [id number] 12y+ bivalent booster vax 02/04/22 Recorded SARS-CoV-2 mRNA (imubwwn-hhdz-ttfgv) vax 08/13/21 Recorded pneumococcal 23-valent vaccine 05/28/21 Recorded SARS-CoV-2 (COVID-19) mRNA BNT-162b2 vac 02/23/21 Recorded SARS-CoV-2 (COVID-19) mRNA BNT-162b2 vac 08/19/20 Given SARS-CoV-2 (COVID-19) mRNA BNT-162b2 vac 07/29/20 Given pneumococcal 13-valent vaccine 2 08/27/18 Given pneumococcal 13-valent vaccine 06/29/16 Given tetanus/diphtheria/pertussis, acel(Tdap) 06/29/16 Given 1Location History: ROBB 2Result Comment: 3166-0204-20 Medications Multivitamin 1 tablet, By Mouth, Daily [...] referred to neurology 2Saw Dr Muñiz. In [place] 3tried PT for 04/15/16 Vital Signs Most recent to oldest [Reference Range]: 1 Height 157.48 cm (03/10/22 4:27 PM) Weight 47.2 kg (03/10/22 4:27 PM) Oxygen Saturation [94-100 %] 100 % (03/10/22 4:27 PM) Pulse Rate [55-90 bpm] 67 bpm (03/10/22 4:27 PM) Body Mass Index [18.5-24.99 kg/m2] 19.03 kg/m2 (03/10/22 4:27 PM) Blood Pressure [90-138/55-84 mm Hg] 137/ 78mm Hg (03/10/22 4:27 PM) Mode of Delivery (Oxygen) Room air (03/10/22 4:27 PM) Blood pressure sites Arm, right (03/10/22 4:27 PM) Weight Obtained Via Standing scale (03/10/22 4:27 PM) Social History Social History Type Response Smoking Status Former smoker; Tobac co use times per day: Smoke less the a pack a day; Started at age: 17; Stopped at age: 30; entered on: 2/15/17 Sex Patient Care team information Personnel Name: Bobo THOMAS, Salinas Jaffe Address: Address: [address] [place] [address]
--- OUTSIDE RECORDS SUMMARY | 2024-01-03 07:24 | XMS_ITS | Continuity of Care Document ---
Author Organization [facility] Address [address] [facility], [address] [place] [address]- Care Team Providers Care Tracer Bullet Charging Machine Operator Name Role Phone Salinas Broussard MD Primary Care Physician Encounter 09/01/22 - 09/08/22 [facility] [address], [address] [place] [address]- Attending Physician: Salinas Broussard MD Admitting Physician: [...] influenza virus vaccine, inactivated 01/11/16 Yo rded [id number] 12y+ bivalent booster vax 02/04/22 Recorded SARS-CoV-2 mRNA (nkmjazj-eycm-jydai) vax 08/13/21 Recorded pneumococcal 23-valent vaccine 05/28/21 Recorded SARS-CoV-2 (COVID-19) mRNA BNT-162b2 vac 02/23/21 Recorded SARS-CoV-2 (COVID-19) mRNA BNT-162b2 vac 08/19/20 Given SARS-CoV-2 (COVID-19) mRNA BNT-162b2 vac 07/29/20 Given pneumococcal 13-valent vaccine 2 08/27/18 Given pneumococcal 13-valent vaccine 06/29/16 Given tetanus/diphtheria/pertussis, acel(Tdap) 06/29/16 Given 1Location History: ROBB 2Result Comment: [id number] Medications Multivitamin 1 tablet, By Mouth, Daily [...] referred to neurology 2Saw Dr Muñiz. In [place] 3tried PT for 04/15/16 Results Radiology Reports * Exam Date Time Procedure Performing Provider Status 09/01/22 2:17 PM MM Digital Mammo Screening Tristin Byrnes; Auth (Verified) Notes: (MM Digital Mammo Screening) Reason For Exam: Screening RESULT: MM Digital Mammo Screening PROCEDURE: MM Digital Mammo Screening INDICATION: Screening for breast cancer. No known palpable abnormalities. COMPARISON: Prior mammograms, 07/07/2021 and 08/25/2016. TECHNIQUE:: Full-field digital CC and MLO 3D tomosynthesis images of both breasts were acquired with implants displaced. In addition, 2-D MLO and CC views were obtained. Computer-aided detection (CAD) was utilized in the interpretation of this study DENSITY: The breast tissue contains scattered areas of fibroglandular density. FINDINGS: No suspicious masses, suspicious calcifications, or areas of architectural distortion areseen to suggest malignancy. There are bilateral subpectoral saline implants with no evidence of complication. IMPRESSION: No mammographic evidence of malignancy. RECOMMENDATION: Annual mammographic screening BI-RADS: 2 (Benign) Lay letter mailed to patient WSN: [id number] Ordering Physician: Salinas Broussard Dictated By: Maxine Aguayo MD Dictated Date/Time: 09/01/22 3:32 pm Reviewed By: Maxine Aguayo MD Signed By: Maxine Aguayo MD Signed Date/Time: 09/01/22 3:32 pm Transcribed By: TRACIE Cat Hooker Date/Time: 09/01/22 3:29 pm Birads: Social History Social History Type Response Smoking Status Former smoker; Tobac co use times per day: Smoke less the a pack a day; Started at age: 17; Stopped at age: 30; entered on: 06/29/16 Sex MG Breast Screening * [facility] , CIS S: TRANSCRIBE Maxine Aguayo MD: VERIFY Event Display: Result: Authored Date: [id number] PROCEDURE: MM Digital Mammo Screening INDICATION: Screening for breast cancer. No known palpable abnormalities. COMPARISON: Prior mammograms, 07/07/2021 and 08/25/2016. TECHNIQUE:: Full-field digital CC and MLO 3D tomosynthesis images of both breasts were acquired with implants displaced. In addition, 2-D MLO and CC views were obtained. Computer-aided detection (CAD) was utilized in the interpretation of this study DENSITY: The breast tissue contains scattered areas of fibroglandular density. FINDINGS: No suspicious masses, suspicious calcifications, or areas of architectural distortion areseen to suggest malignancy. There are bilateral subpectoral saline implants with no evidence of complication. IMPRESSION: No mammographic evidence of malignancy. RECOMMENDATION: Annual mammographic screening BI-RADS: 2 (Benign) Lay letter mailed to patient WSN: [id number] Ordering Physician: Salinas Broussard Dictated By: Maxine Aguayo MD Dictated Date/Time: 09/01/22 3:32 pm Reviewed By: Maxine Aguayo MD Signed By: Maxine Aguayo MD Signed Date/Time: 09/01/22 3:32 pm Transcribed By: TRACIE Cat Hooker Date/Time: 09/01/22 3:29 pm Birads: Patient Care team information Care Team Personnel Name: Salinas Broussard MD R Position: [facility] Primary Care Physician Member Role: PCP Address: Address: [address] [place] [address]- Care Team Related Persons Name: NEIL RIVERA Address: home [address] [place] [address] Name: IRIS PIKE Address: [address] [place] [address]
== END 2023-12-31 15:02 | disposition home or self-care (01) ==
PROVIDERS: Physician Assistant; Emergency Provider Emergency Medicine; PCP Family Medicine
DX: U07.1 COVID-19 (principal); J06.9 Acute upper respiratory infection, unspecified; M79.10 Myalgia, unspecified site; R50.9 Fever, unspecified; R11.2 Nausea with vomiting, unspecified; I10 Essential (primary) hypertension; Z79.899 Other long term (current) drug therapy
CPT/HCPCS: 0241U; 36415; 71046; 80048; 80076; 83735; 84484; 85025; 87651; 93005; 96360; 96361; 99284

== ENCOUNTER 2024-06-25 09:29 | Emergency (ER) | payer OTHER, SELFPAY ==
--- NOTE | ~2024-06-25 | XR_ITS ---
EXAMINATION: XR KNEE, RIGHT CLINICAL INFORMATION: knee pain, swelling, no known injury. COMPARISON: None available. TECHNIQUE: Four views of the right knee. FINDINGS: No fracture, dislocation, or suspicious bone lesion. Normal alignment. No evidence of joint effusion. There is chondrocalcinosis in the medial and lateral compartments indicating CPPD. Joint spaces appear preserved. No soft tissue abnormality. XR/XR knee RT 3V IMPRESSION: 1. No acute bony abnormalities right knee. 2. Chondrocalcinosis suggesting CPPD. 3. Preserved joint spaces with no joint effusion. Electronically signed by: Ted Salinas MD 06/25/2024 10:32 AM [facility]
[2024-06-25 09:36] VITALS: BP 143/88; PULSE 79; RESP 16; TEMP 36.1; O2SAT 100; BMI 18.1
== END 2024-06-25 17:17 | disposition left against medical advice (07) ==
PROVIDERS: Emergency Provider Emergency Medicine; PCP Family Medicine
DX: M25.461 Effusion, right knee (principal)
CPT/HCPCS: 73562; 99281

== ENCOUNTER → 2024-06-25 10:10 | Outpatient (BNV) | payer OTHER, SELFPAY | PROVIDERS: PCP Family Medicine; Visit Provider Radiology Diagnostic Radiology | DX: M11.262 Other chondrocalcinosis, left knee (principal) | CPT/HCPCS: 73562 ==

== ENCOUNTER 2024-08-05 06:24 | Day surgery (SDC) | payer OTHER, SELFPAY ==
--- OUTSIDE RECORDS SUMMARY | 2024-07-05 12:07 | XMS_ITS | Patient Health Record ---
Author Organization [facility] Address [address] [place] [address] Care Team Providers Care Business Enterprise Officer Name Role Phone Hany Poon Primary Care Provider Reason For Referral No Information Medications Medication SIG (Take, Route, Frequency, Duration) Notes Start Date End Date Status Loratadine 10 MG 0 Oral 1 qam for 08/01/2016 Active NORTRIPTYLINE HCL 10 MG CAP 60 1 qhs x 1 week, then 2 qhs after that. for 30 *please review for potential update for e-prescription and drug interaction check* 08/02/2016 Active DYAZIDE 37.5-25 CAPSULE MG 0 1 tab qod for 30 *please review for potential update for e-prescription and drug interaction check* 08/01/2016 Active Vitamin B-2 100 mg 120 Oral Take 2 tabs bid with meals (4 tabs qd). for 08/02/2016 Active Premarin 0.45 MG 0 Oral 1 qam for 30 ae: sl bloating 08/01/2016 Active Multi-Vitamin 0 Oral 1 qam for 30 08/01/2016 Active Plan Of Treatment No Information Insurance Providers Payer Name Payer Address Payer Phone Subscriber Number Group Number Insured Name Patient Relationship to Insured Coverage Start Date Coverage End Date [facility] [address] [id number] Arianne Perry Self - patient is the insured
[2024-07-31 10:30] VITALS: BMI 18.5
[2024-08-05] MEDS: Tetracaine HCl/PF 0.5% Oph Sol 4 ML DROPS 1 DROP EYE-LEFT (06:59)
[2024-08-05] MEDS: Cyclopentolate 1 % Ophth Sol 2 ML DRPBTL 1 DROP EYE-LEFT ×3 (07:00→07:16)
[2024-08-05] MEDS: Tropicamide 1 % Ophth Sol 3 ML BTL 1 DROP EYE-LEFT ×3 (07:02→07:18)
[2024-08-05 07:03] VITALS: BMI 19.2
[2024-08-05] MEDS: Ketorolac Tromethamine 0.5% Op 5 ML DROPS 1 DROP EYE-LEFT ×3 (07:04→07:20)
[2024-08-05] MEDS: Phenylephrine HCL 2.5% Oph SoL 2 ML BOTTLE 1 DROP EYE-LEFT ×3 (07:06→07:22)
[2024-08-05 07:10] VITALS: BP 142/69; PULSE 74; RESP 16; TEMP 36.6; O2SAT 99
[2024-08-05] MEDS: Lactated Ringers 500 ML 50 ML IV (07:20)
--- NOTE | 2024-08-05 07:20 | P.CONAN_ITS ---
Documented by User: Alice Blood NP 08/01/24 13:16 HPI - Anesthesia Eval Consult details Narrative: 73yo F for Left Cataract Extraction IOL Insertion No previous cataract PMFSH Active Problems Active Problems: All Active Problems COVID-19 (Acute) Past Medical History Medical History (Updated 07/31/24 @ 10:29 by Nena Leyva, KELLY) Personal history of COVID-19 (12/2023) Vertigo HLD (hyperlipidemia) Allergic rhinitis Cataracts, bilateral Surgical History Surgical History (Updated 08/05/24 @ 07:07 by Mariya Savage RN) Hx of hemorrhoidectomy History of hysterectomy Hx of tonsillectomy Hx of BSO (bilateral salpingo-oophorectomy) (~1995) Social History Social History (Updated 07/31/24 @ 10:42 by Nena Leyva, KELLY) Household Members: Spouse Housing: House Alcohol intake: never Patient Tobacco Use Status: Former Tobacco user Tobacco use type: Cigarette Use of substances other than those prescribed or required for medical reasons: No Are you DNR?: No Advance Directives: No Advance Directives Information Provided: Yes Advance Directives on File: No Meds Allergies Allergy/AdvReac Type Severity Reaction Status Date / Time amoxicillin [From AUGMENTIN] Allergy Severe HIVES, Verified 08/05/24 06:55 ITCHING clavulanic acid Allergy Severe HIVES, Verified 08/05/24 06:55 [From AUGMENTIN] ITCHING erythromycin base Allergy Severe HEART Verified 08/05/24 06:55 [Erythromycin Base] PALPATATIONS diphenhydramine Allergy Intermediate HIVES Verified 08/05/24 06:55 [From BENADRYL] garlic Allergy Intermediate Diarrhea Verified 08/05/24 06:55 onion [Onion] Allergy Intermediate Diarrhea Verified 08/05/24 06:55 Home Medications ?Medication ?Instructions ?Recorded ?Confirmed ?Last Taken ?Type No Known Home Meds 07/31/24 08/05/24 Unknown History Exam Height,Weight and Vital Signs: Height 5 ft 2 in Weight 45.9 kg Assessment and Plan Assessment Anesthesia Assessment: Chart Reviewed Documented by User: Isabela Erickson DO 08/05/24 07:24 [facility], [facility] Past Medical History Medical History (Updated 07/31/24 @ 10:29 by Nena Leyva, KELLY) Personal history of COVID-19 (12/2023) Vertigo HLD (hyperlipidemia) Allergic rhinitis Cataracts, bilateral Family History Family history of problems with anesthesia: No Surgical History Surgical History (Updated 08/05/24 @ 07:07 by Mariya Savage RN) Hx of hemorrhoidectomy History of hysterectomy Hx of tonsillectomy Hx of BSO (bilateral salpingo-oophorectomy) (~1995) History of Problems with Anesthesia: No Social History Social History (Updated 07/31/24 @ 10:42 by Nena Leyva, KELLY) Household Members: Spouse Housing: House Alcohol intake: never Patient Tobacco Use Status: Former Tobacco user Tobacco use type: Cigarette Use of substances other than those prescribed or required for medical reasons: No Are you DNR?: No Advance Directives: No Advance Directives Information Provided: Yes Advance Directives on File: No Meds Allergies Allergy/AdvReac Type Severity Reaction Status Date / Time amoxicillin [From AUGMENTIN] Allergy Severe HIVES, Verified 08/05/24 06:55 ITCHING clavulanic acid Allergy Severe HIVES, Verified 08/05/24 06:55 [From AUGMENTIN] ITCHING erythromycin base Allergy Severe HEART Verified 08/05/24 06:55 [Erythromycin Base] PALPATATIONS diphenhydramine Allergy Intermediate HIVES Verified 08/05/24 06:55 [From BENADRYL] garlic Allergy Intermediate Diarrhea Verified 08/05/24 06:55 onion [Onion] Allergy Intermediate Diarrhea Verified 08/05/24 06:55 Home Medications ?Medication ?Instructions ?Recorded ?Confirmed ?Last Taken ?Type No Known Home Meds 07/31/24 08/05/24 Unknown History Exam Exam Date and Time: 08/05/24 0720 Height,Weight and Vital Signs: Height 5 ft 2 in Weight 45.9 kg Vital Signs Temperature 97.9 F 08/05/24 07:10 Pulse Rate 74 08/05/24 07:10 Respiratory Rate 16 08/05/24 07:10 Blood Pressure 142/69 H 08/05/24 07:10 Pulse Oximetry 99 08/05/24 07:10 Oxygen Delivery Method Room Air 08/05/24 07:10 Temperature 97.9 F 08/05/24 07:10 Pulse Rate 74 08/05/24 07:10 Respiratory Rate 16 08/05/24 07:10 Blood Pressure 142/69 H 08/05/24 07:10 Pulse Oximetry 99 08/05/24 07:10 Oxygen Delivery Method Room Air 08/05/24 07:10 Airway Mallampati Class: I TM Dist: >3cm Neck ROM: Full Loose/Missing/Broken Teeth: No (patient denies any loose or broken teeth) Heart: S1S2 Lungs: CTAB Assessment and Plan Assessment Anesthesia Assessment: Anesthesia Plan Discussed and Chart Reviewed Final Anesthetic Review Family History of Problems with Anesthesia: No History of Problems with Anesthesia: No NPO: Yes ASA Class: II Final Preanesthetic Review: No Changes in Pt Med Stat, Meds/Allgs Chart Reviewed, Consent Obtained/Reviewed and Anes Risks/Benef Reviewed Patient Risk: Low Procedure Risk: Low Anesthetic Plan Anesthetic Plan: MAC: and Agree w/ Assess. and Plan Disposition: Standard PACU
--- NOTE | 2024-08-05 07:30 | MHC.SHP ---
Pre-Procedural Eval Section A - 24 Hr Update-Section A only Date of Service: 08/05/24 The patient is an INPATIENT: No Changes since office visit: No Cold of Flu in the past 2 weeks, No New Medical Problems, No Changes in Medication and No Patient answered all questions The patient has been examined within 24 hours of the surgical procedure. The History & Physical has been completed within 30 days and I have reviewed it.: Yes Section B - Complete if H&P > 30 days Chief Complaint: Age-related nuclear cataract, left eye Allergies: Allergies Allergy/AdvReac Type Severity Reaction Status Date / Time amoxicillin [From AUGMENTIN] Allergy Severe HIVES, Verified 08/05/24 06:55 ITCHING clavulanic acid Allergy Severe HIVES, Verified 08/05/24 06:55 [From AUGMENTIN] ITCHING erythromycin base Allergy Severe HEART Verified 08/05/24 06:55 [Erythromycin Base] PALPATATIONS diphenhydramine Allergy Intermediate HIVES Verified 08/05/24 06:55 [From BENADRYL] garlic Allergy Intermediate Diarrhea Verified 08/05/24 06:55 onion [Onion] Allergy Intermediate Diarrhea Verified 08/05/24 06:55 Plan Diagnosis/Plan: Unchanged I have reviewed the history and physical and performed a pertinent physical examination on my patient. No changes have occurred unless specified. Time Spent With Patient Time: Total time managing care of this patient today ____ minutes.
--- NOTE | 2024-08-05 07:31 | HO.PNOPHT ---
Ophthalmology Procedure Procedure Date of Service: 08/05/24 Ophthalmology Viscoelastic: Not Applicable Ophthalmology Lenses: IOL Acrysof MP - MA60AC (20) Procedure Notes: PREOPERATIVE DIAGNOSIS: Decreased visual acuity left eye secondary to cataract POSTOPERATIVE DIAGNOSIS: Same PROCEDURE: Left cataract extraction with intraocular lens insertion SURGEON: Gerry Dawson M.D. ANESTHESIA: Topical/MAC ESTIMATED BLOOD LOSS: None COMPLICATIONS: None After obtaining informed consent, the patient was brought to the operation room suite and placed in the supine position. After adequate sedation per anesthesia, topical drops of Tetracaine were given to the left eye. The eye was then prepped and draped in the usual sterile fashion. The operating room microscope was then positioned over the operative eye and a lid speculum placed. A paracentesis was created. Viscoelastic was then instilled into the anterior chamber. A three plane incision was then created temporally, utilizing a 2.85 mm keratome. Capsulotomy forceps were then utilized to create a circular tear capsulotomy. Hydrodissection and hydrodelineation were carried out until adequate mobilization of the nucleus occurred. Phacoemulsification was then utilized to remove the dense central nucleus followed by removal of the cortical material utilizing the automated aspiration irrigation unit. Viscoat elastic was instilled into the posterior capsular bag followed by placement of a posterior chamber intraocular lens without difficulty. The residual Viscoat elastic was then removed utilizing the automated IA machine. The wound was check and found to be watertight. The patient tolerated the procedure well and the lid speculum was removed. Intracameral injection of Vigamox 0.1 mL followed by a subtenon injection of Kenalog-40 0.2 mL were administered. The patient will be seen in the a.m.
[2024-08-05 08:03] VITALS: BP 125/73; PULSE 74; RESP 18; TEMP 36.3; O2SAT 99
== END 2024-08-05 08:07 | disposition home or self-care (01) ==
PROVIDERS: PCP Family Medicine; Visit Provider Ophthalmology
PROC: (CPT 66985; principal; 2024-08-05 07:30)
DX: H25.12 Age-related nuclear cataract, left eye (principal); H54.7 Unspecified visual loss; H81.10 Benign paroxysmal vertigo, unspecified ear; J30.9 Allergic rhinitis, unspecified; E78.5 Hyperlipidemia, unspecified; E55.9 Vitamin D deficiency, unspecified; Z88.1 Allergy status to other antibiotic agents; Z87.891 Personal history of nicotine dependence; Z98.890 Other specified postprocedural states
CPT/HCPCS: 66984; J2250; J3301; V2630

== ENCOUNTER 2024-08-19 06:17 | Day surgery (SDC) | payer OTHER, SELFPAY ==
[2024-07-31 10:40] VITALS: BMI 18.5
[2024-08-19] MEDS: Lactated Ringers 500 ML 50 ML IV (06:25)
[2024-08-19] MEDS: Tetracaine HCl/PF 0.5% Oph Sol 4 ML DROPS 1 DROP EYE-RIGHT (06:26)
[2024-08-19] MEDS: Tropicamide 1 % Ophth Sol 3 ML BTL 1 DROP EYE-RIGHT ×3 (06:26→06:35)
[2024-08-19] MEDS: Phenylephrine HCL 2.5% Oph SoL 2 ML BOTTLE 1 DROP EYE-RIGHT ×3 (06:26→06:35)
[2024-08-19] MEDS: Cyclopentolate 1 % Ophth Sol 2 ML DRPBTL 1 DROP EYE-RIGHT ×3 (06:26→06:35)
[2024-08-19] MEDS: Ketorolac Tromethamine 0.5% Op 5 ML DROPS 1 DROP EYE-RIGHT ×3 (06:27→06:36)
[2024-08-19 06:41] VITALS: BP 136/62; PULSE 75; RESP 18; TEMP 36.7; O2SAT 98; BMI 18.7
--- NOTE | 2024-08-19 07:23 | HO.ANESPROP2 ---
Documented by User: Alice Blood NP 08/15/24 14:00 HPI - Anesthesia Eval Consult details Narrative: 73yo F for Right Cataract Extraction IOL Insertion Left eye 08/05/24: Midaz 2 PMFSH Active Problems Active Problems: All Active Problems COVID-19 (Acute) Past Medical History Medical History Personal history of COVID-19 (12/2023) Vertigo HLD (hyperlipidemia) Allergic rhinitis Cataracts, bilateral Family History Family history of problems with anesthesia: No Surgical History Surgical History Hx of left cataract extraction (08/05/24) Hx of hemorrhoidectomy History of hysterectomy Hx of tonsillectomy Hx of BSO (bilateral salpingo-oophorectomy) (~1995) History of Problems with Anesthesia: No Social History Social History (Updated 07/31/24 @ 10:42 by Nena Leyva RN) Household Members: Spouse Housing: House Are you a primary complex care nurse practitioner to a significant other at home: No Do you presently have visiting nurse or other home services: No Alcohol intake: never Patient Tobacco Use Status: Former Tobacco user Tobacco use type: Cigarette Use of substances other than those prescribed or required for medical reasons: No Have you been hit, kicked, punched, or otherwise hurt by someone within the past year? If so, by whom?: No Are you DNR?: No Advance Directives: No Advance Directives Information Provided: Yes Advance Directives on File: No Poor oral hygiene: No Meds Allergies Allergy/AdvReac Type Severity Reaction Status Date / Time amoxicillin [From AUGMENTIN] Allergy Severe HIVES, Verified 08/19/24 06:40 ITCHING clavulanic acid Allergy Severe HIVES, Verified 08/19/24 06:40 [From AUGMENTIN] ITCHING erythromycin base Allergy Severe HEART Verified 08/19/24 06:40 [Erythromycin Base] PALPATATIONS diphenhydramine Allergy Intermediate HIVES Verified 08/19/24 06:40 [From BENADRYL] garlic Allergy Intermediate Diarrhea Verified 08/19/24 06:40 onion [Onion] Allergy Intermediate Diarrhea Verified 08/19/24 06:40 Home Medications ?Medication ?Instructions ?Recorded ?Confirmed ?Last Taken ?Type No Known Home Meds 07/31/24 08/19/24 Unknown History Exam Height,Weight and Vital Signs: Height 5 ft 2 in Weight 45.9 kg Assessment and Plan Assessment Anesthesia Assessment: Chart Reviewed Final Anesthetic Review Family History of Problems with Anesthesia: No History of Problems with Anesthesia: No Documented by User: Isabela Erickson, DO 08/19/24 07:25 PMF Past Medical History Medical History Personal history of COVID-19 (12/2023) Vertigo HLD (hyperlipidemia) Allergic rhinitis Cataracts, bilateral Family History Family history of problems with anesthesia: No Surgical History Surgical History Hx of left cataract extraction (08/05/24) Hx of hemorrhoidectomy History of hysterectomy Hx of tonsillectomy Hx of BSO (bilateral salpingo-oophorectomy) (~1995) History of Problems with Anesthesia: No Social History Social History (Updated 07/31/24 @ 10:42 by Nena Leyva RN) Household Members: Spouse Housing: House Are you a primary complex care nurse practitioner to a significant other at home: No Do you presently have visiting nurse or other home services: No Alcohol intake: never Patient Tobacco Use Status: Former Tobacco user Tobacco use type: Cigarette Use of substances other than those prescribed or required for medical reasons: No Have you been hit, kicked, punched, or otherwise hurt by someone within the past year? If so, by whom?: No Are you DNR?: No Advance Directives: No Advance Directives Information Provided: Yes Advance Directives on File: No Poor oral hygiene: No Meds Allergies Allergy/AdvReac Type Severity Reaction Status Date / Time amoxicillin [From AUGMENTIN] Allergy Severe HIVES, Verified 08/19/24 06:40 ITCHING clavulanic acid Allergy Severe HIVES, Verified 08/19/24 06:40 [From AUGMENTIN] ITCHING erythromycin base Allergy Severe HEART Verified 08/19/24 06:40 [Erythromycin Base] PALPATATIONS diphenhydramine Allergy Intermediate HIVES Verified 08/19/24 06:40 [From BENADRYL] garlic Allergy Intermediate Diarrhea Verified 08/19/24 06:40 onion [Onion] Allergy Intermediate Diarrhea Verified 08/19/24 06:40 Home Medications ?Medication ?Instructions ?Recorded ?Confirmed ?Last Taken ?Type No Known Home Meds 07/31/24 08/19/24 Unknown History Exam Exam Date and Time: 08/19/24 0718 Height,Weight and Vital Signs: Height 5 ft 2 in Weight 45.9 kg Vital Signs Temperature 98.1 F 08/19/24 06:41 Pulse Rate 75 08/19/24 06:41 Respiratory Rate 18 08/19/24 06:41 Blood Pressure 136/62 08/19/24 06:41 Pulse Oximetry 98 08/19/24 06:41 Oxygen Delivery Method Room Air 08/19/24 06:41 Temperature 98.1 F 08/19/24 06:41 Pulse Rate 75 08/19/24 06:41 Respiratory Rate 18 08/19/24 06:41 Blood Pressure 136/62 08/19/24 06:41 Pulse Oximetry 98 08/19/24 06:41 Oxygen Delivery Method Room Air 08/19/24 06:41 Airway Mallampati Class: I TM Dist: >3cm Neck ROM: Full Loose/Missing/Broken Teeth: No (patient denies any loose or broken teeth) Heart: S1S2 Lungs: CTAB Assessment and Plan Assessment Anesthesia Assessment: Anesthesia Plan Discussed and Chart Reviewed Final Anesthetic Review Family History of Problems with Anesthesia: No History of Problems with Anesthesia: No NPO: Yes ASA Class: II Final Preanesthetic Review: No Changes in Pt Med Stat, Meds/Allgs Chart Reviewed, Consent Obtained/Reviewed and Anes Risks/Benef Reviewed Patient Risk: Low Procedure Risk: Low Anesthetic Plan Anesthetic Plan: MAC: and Agree w/ Assess. and Plan Disposition: Standard PACU
--- NOTE | 2024-08-19 07:24 | P.PCNO_ITS ---
Ophthalmology Procedure Procedure Date of Service: 08/19/24 Ophthalmology Viscoelastic: Healon Duet Dual Pack Pro Ophthalmology Lenses: IOL Acrysof MP - MA60AC (20) Procedure Notes: PREOPERATIVE DIAGNOSIS: Decreased visual acuity right eye secondary to cataract POSTOPERATIVE DIAGNOSIS: Same PROCEDURE: Right cataract extraction with intraocular lens insertion SURGEON: Gerry Dawson M.D. ANESTHESIA: Topical/MAC ESTIMATED BLOOD LOSS: None COMPLICATIONS: None After obtaining informed consent, the patient was brought to the operating room suite and placed in the supine position. After adequate sedation per anesthesia, topical drops of Tetracaine were given to the right eye. The eye was then prepped and draped in the usual sterile fashion. The operating room microscope was then positioned over the operative eye and a lid speculum placed. A paracentesis was created. Viscoelastic was then instilled into the anterior chamber. A three plane incision was then created temporally, utilizing a 2.85 mm keratome. Capsulotomy forceps were then utilized to create a circular tear capsulotomy. Hydrodissection and hydrodelineation were carried out until adequate mobilization of the nucleus occurred. Phacoemulsification was then utilized to remove the dense central nucl eus followed by removal of the cortical material utilizing the automated aspiration irrigation unit. Viscoelastic was instilled into the posterior capsular bag followed by placement of a posterior chamber intraocular lens without difficulty. The residual Viscoelastic was then removed utilizing the automated IA machine. The wound was checked and found to be watertight. The patient tolerated the procedure well and the lid speculum was removed. Intracameral injection of Vigamox 0.1 mL followed by a subtenon injection of Kenalog-40 0.2 mL were administered. The patient will be seen in the a.m.
--- NOTE | 2024-08-19 07:24 | MHC.SHP ---
Pre-Procedural Eval Section A - 24 Hr Update-Section A only Date of Service: 08/19/24 The patient is an INPATIENT: No Changes since office visit: No Cold of Flu in the past 2 weeks, No New Medical Problems, No Changes in Medication and No Patient answered all questions The patient has been examined within 24 hours of the surgical procedure. The History & Physical has been completed within 30 days and I have reviewed it.: Yes Section B - Complete if H&P > 30 days Chief Complaint: Age-related nuclear cataract, right eye Allergies: Allergies Allergy/AdvReac Type Severity Reaction Status Date / Time amoxicillin [From AUGMENTIN] Allergy Severe HIVES, Verified 08/19/24 06:40 ITCHING clavulanic acid Allergy Severe HIVES, Verified 08/19/24 06:40 [From AUGMENTIN] ITCHING erythromycin base Allergy Severe HEART Verified 08/19/24 06:40 [Erythromycin Base] PALPATATIONS diphenhydramine Allergy Intermediate HIVES Verified 08/19/24 06:40 [From BENADRYL] garlic Allergy Intermediate Diarrhea Verified 08/19/24 06:40 onion [Onion] Allergy Intermediate Diarrhea Verified 08/19/24 06:40 Plan Diagnosis/Plan: Unchanged I have reviewed the history and physical and performed a pertinent physical examination on my patient. No changes have occurred unless specified. Time Spent With Patient Time: Total time managing care of this patient today ____ minutes.
[2024-08-19 08:01] VITALS: BP 131/65; PULSE 69; RESP 16; TEMP 36.3; O2SAT 100
== END 2024-08-19 08:03 | disposition home or self-care (01) ==
PROVIDERS: PCP Family Medicine; Visit Provider Ophthalmology
PROC: (CPT 66985; principal; 2024-08-19 07:30)
DX: H25.11 Age-related nuclear cataract, right eye (principal); H54.7 Unspecified visual loss; J30.9 Allergic rhinitis, unspecified; E78.5 Hyperlipidemia, unspecified; H81.10 Benign paroxysmal vertigo, unspecified ear; F10.90 Alcohol use, unspecified, uncomplicated; Z88.1 Allergy status to other antibiotic agents; Z87.891 Personal history of nicotine dependence
CPT/HCPCS: 66984; J2250; J3301; V2630